=== PATIENT | female | born 2000 | race Hispanic/Latino ===

== ENCOUNTER 2019-07-12 21:26 | Emergency (ER) | payer SELFPAY ==
[2019-07-12] MEDS ORDERED: ONDANSETRON 4 MG/2 ML VIAL ONE (21:58)
[2019-07-12] MEDS ORDERED: FAMOTIDINE 20 MG/2 ML VIAL IV ONE (21:58)
[2019-07-12] MEDS ORDERED: NA CHLORIDE 0.9% 1,000 ML ONE (21:58)
[2019-07-12 22:16] LABS: Absolute Lymphocytes (CBC) 0.4 K/uL (0.7-4.9); Basophils % 0.6 % (0-1.3); Hematocrit 39.4 % (36.0-45.0); Lymphocytes % 3.8 % (15.3-44.8); MPV 8.3 fL (7.6-11.3); RBC Red Blood Cell Count 4.72 M/uL (3.86-4.86)
[2019-07-12 23:12] LABS: ALT/SGPT 20 U/L (12-78); AST/SGOT 14 U/L (15-37); Albumin 3.9 g/dL (3.4-5.0); Alkaline Phosphatase 116 U/L (45-117); BUN Blood Urea Nitrogen 8 mg/dL (7-18); Bicarbonate 25 mmol/L (21-32); Bilirubin Direct < 0.1 mg/dL (0-0.2); Bilirubin Total 0.3 mg/dL (0.2-1.0); Glucose Level 108 mg/dL (74-106); Lipase 82 U/L (73-393); Potassium 3.7 mmol/L (3.5-5.1); Protein, Total 8.1 g/dL (6.4-8.2); Sodium Level 134 mmol/L (136-145)
[2019-07-12 23:26] LABS: Blood Morphology Comment NOT SEEN (NOT SEEN); Platelet Estimate ADEQ
--- NOTE | 2019-07-12 23:46 | EDPHYS ---
Physician Documentation [facility] Name: Daria Mario Age: 19 yrs Sex: Female : 2000 Arrival Date: 07/12/2019 Time: 21:26 Bed 16 Private MD: ED Physician Keith Montanez HPI: 07/11 21:55 This 19 yrs old Female presents to ER via Ambulatory with complaints of cp Nausea/Vomiting/Diarrhea. 21:55 Onset: The symptoms/episode began/occurred today. cp 07/12 21:47 The patient presents to the emergency department with nausea, that is moderate, cp vomiting, that is intermittent, 2 times today, diarrhea, that is intermittent, 2 times today, abdominal pain, of the left lower quadrant, described as achy, and does not radiate. Associated signs and symptoms: Pertinent positives: headache, Pertinent negatives: constipation, fever, GI bleeding, vaginal discharge, urinary symptoms. 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 - Social history:: Smoking status: Patient reports the use of cigarette tobacco products, denies chronic smoking, but will smoke occasionally. ROS: 22:00 Constitutional: Negative for body aches, chills, fever. cp 22:00 Eyes: Negative for injury, pain, redness, and discharge. cp 22:00 ENT: Negative for drainage from ear(s), ear pain, sore throat, difficulty swallowing, difficulty handling secretions. 22:00 Cardiovascular: Negative for chest pain, palpitations. 22:00 Respiratory: Negative for cough, shortness of breath, wheezing. 22:00 Abdomen/GI: Positive for abdominal pain, nausea, vomiting, and diarrhea, Negative for constipation, hematemesis. 22:00 Back: Negative for pain at rest, pain with movement, radiated pain. 22:00 : Negative for urinary symptoms, vaginal bleeding, vaginal discharge. 22:00 Skin: Negative for rash. 22:00 Neuro: Positive for headache, Negative for altered mental status, dizziness, weakness. 22:00 All other systems are negative. Exam: 22:10 Constitutional: The patient appears in no acute distress, alert, awake, non-toxic, well cp developed, well nourished. 22:10 Head/Face: Normocephalic, atraumatic. Eyes: Pupils equal round and reactive to light, cp extra-ocular motions intact. Lids and lashes normal. Conjunctiva and sclera are non-icteric and not injected. Cornea within normal limits. Periorbital areas with no swelling, redness, or edema. ENT: Nares patent. No nasal discharge, no septal abnormalities noted. Tympanic membranes are normal and external auditory canals are clear. Oropharynx with no redness, swelling, or masses, exudates, or evidence of obstruction, uvula midline. Mucous membranes moist. Chest/axilla: Normal chest wall appearance and motion. Nontender with no deformity. No lesions are appreciated. 22:10 Neck: ROM/movement: is normal, is supple, no meningismus, no nuchal rigidity. 22:10 Cardiovascular: Rate: tachycardic, Rhythm: regular. 22:10 Respiratory: the patient does not display signs of respiratory distress, Respirations: normal, no use of accessory muscles, no retractions, labored breathing, is not present, Breath sounds: are clear throughout, no decreased breath sounds, no stridor, no wheezing. 22:10 Abdomen/GI: Inspection: abdomen appears normal, Bowel sounds: active, all quadrants, Palpation: soft, in all quadrants, mild abdominal tenderness, in the left lower quadrant, rebound tenderness, is not appreciated, voluntary guarding, is not appreciated, involuntary guarding, is not appreciated. 22:10 Back: pain, is absent, ROM is normal. 22:10 Skin: no rash present. 22:10 Neuro: Orientation: to person, place \T\ time. Mentation: is normal, Motor: moves all fours, strength is normal. Vital Signs: 21:40 BP 114 / 69; Pulse 109; Resp 16 S; Temp 98.7(TE); Pulse Ox 100% on R/A; Weight 95.25 kg jd3 (R); Height 5 ft. 2 in. (157.48 cm) (R); Pain 8/10; 22:40 BP 103 / 58; Pulse 101; Resp 18; Pulse Ox 100% on R/A; mg2 23:39 BP 103 / 59; Pulse 88; Resp 18; Pulse Ox 100% ; mg2 21:40 Body Mass Index 38.41 (95.25 kg, 157.48 cm) jd3 MDM: 21:45 Patient medically screened. cp 22:00 Differential diagnosis: gastritis, cholecystitis, appendicitis, viral gastroenteritis, cp gastroenteritis. 23:45 Data reviewed: vital signs, nurses notes, lab test result(s), and as a result, I will cp discharge patient. 23:45 Counseling: I had a detailed discussion with the patient and/or guardian regarding: the cp historical points, exam findings, and any diagnostic results supporting the discharge/admit diagnosis, lab results, to return to the emergency department if symptoms worsen or persist or if there are any questions or concerns that arise at home. Response to treatment: the patient's symptoms have markedly improved after treatment, VSS. Nausea and pain improved. No vomiting observed while in ED, and as a result, I will discharge patient. 07/11 21:51 Order name: Basic Metabolic Panel; Complete Time: 23:14 cp 07/11 23:14 Interpretation: Normal except: NA 134; GLUC 108. cp 07/11 21:51 Order name: CBC with Diff; Complete Time: 23:40 cp 0310 22:54 Interpretation: Normal except: WBC 11.5; MCV 83.5; RDW 15.7; JOCELYN% 88.4; LYM% 3.8; NEUT cp A 10.2; LYMA 0.4. 0310 21:51 Order name: Creatinine for Radiology; Complete Time: 22:53 cp 07/11 21:51 Order name: Hepatic Function; Complete Time: 23:14 cp 0310 23:14 Interpretation: Normal except: AST 14; GLOB 4.2; A/G 0.9. cp 03 21:51 Order name: Lipase; Complete Time: 23:14 cp 07/11 21:51 Order name: Influenza Screen (a \T\ B); Complete Time: 22:53 cp 03 22:54 Interpretation: Abnormal: FLUA FLU A ----- \T\nbsp; \T\nbsp; \T\nbsp; \T\nbsp; \T\nbsp; \T\nbs p; cp \T\nbsp; \T\nbsp; \T\nbsp; POSITIVE for FLU A protein antigen. 07/11 21:51 Order name: IV Saline Lock; Complete Time: 22:23 cp 07/11 21:51 Order name: Labs collected and sent; Complete Time: 22:23 cp 07/11 21:51 Order name: Urine Dipstick-Ancillary (obtain specimen); Complete Time: 22:23 cp 07/11 22:32 Order name: Manual Differential; Complete Time: 23:40 EDMS 07/11 23:40 Interpretation: Normal except: SEGS 91; LYM 3. cp 07/11 21:51 Order name: Urine Test (obtain specimen); Complete Time: 22:23 cp 07/11 23:15 Order name: PO challenge; Complete Time: 23:39 cp Administered Medications: 22:05 Drug: Pepcid 20 mg Route: IVP; Site: left antecubital; mg2 23:13 Follow up: Response: No adverse reaction mg2 22:05 Drug: NS 0.9% 1000 ml Route: IV; Rate: 1 bolus; Site: left antecubital; mg2 07/12 00:07 Follow up: Response: No adverse reaction; IV Status: Completed infusion; IV Intake: mg2 1000ml 07/11 22:06 Drug: Zofran (Ondansetron) 4 mg Route: IVP; Site: left antecubital; mg2 23:13 Follow up: Response: No adverse reaction mg2 07/12 00:07 Drug: Tamiflu 75 mg Route: PO; mg2 00:07 Follow up: Response: No adverse reaction; Medication administered at discharge. mg2 Disposition: 07/12/19 23:45 Discharged to Home. Impression: Nausea and vomiting, Diarrhea, unspecified, Influenza due to identified novel influenza A virus. - Condition is Stable. - Discharge Instructions: Food Choices to Help Relieve Diarrhea, Adult, Diarrhea, Adult, Influenza, Adult, Nausea and Vomiting, Adult. - Prescriptions for Zofran 4 mg Oral Tablet - take 1 tablet by ORAL route every 12 hours As needed; 20 tablet. Tamiflu 75 mg Oral Capsule - take 1 tablet by ORAL route every 12 hours for 5 days; 9 tablet. - Medication Reconciliation Form, Thank You Letter, Antibiotic Education, Prescription Opioid Use form. - Work release form (07/13/19 01:38). ar5 - Follow up: Private Physician; When: 1 - 2 days; Reason: Worsening of condition. - Problem is new. - Symptoms have improved. Addendum: 07/15/2019 08:06 Co-signature as Attending Physician, Keith Montanez MD I agree with the assessment and t w4 plan of care. Signatures: Dispatcher [employer] EDMS Iam Corbett PA PA cp Davies, Jonathon, SANKET RN jd3 Keith Montanez MD MD tw4 Ez Palafox RN RN mg2 Gabrielle Butt ar5 Corrections: (The following items were deleted from the chart) 07/11 22:54 22:54 Normal except: WBC 11.5; MCV 83.5; RDW 15.7; JOCELYN% 88.4; LYM% 3.8; NEUT A 10.2. cp cp 07/12 00:10 07/11 23:45 07/12/2019 23:45 Discharged to Home. Impression: Nausea and vomiting; mg2 Diarrhea, unspecified; Influenza due to identified novel influenza A virus. Condition is Stable. Forms are Medication Reconciliation Form, Thank You Letter, Antibiotic Education, Prescription Opioid Use. Follow up: Private Physician; When: 1 - 2 days; Reason: Worsening of condition. Problem is new. Symptoms have improved. cp 07/12 21:49 07/11 21:55 The patient presents to the emergency department with nausea, that is cp moderate, vomiting, that is intermittent, cp
--- NOTE | 2019-07-12 23:46 | ER ---
Nurse's Notes [facility] Name: Daria Mario Age: 19 yrs Sex: Female : 2000 Arrival Date: 07/12/2019 Time: 21:26 Bed 16 Private MD: Diagnosis: Nausea and vomiting;Diarrhea, unspecified;Influenza due to identified novel influenza A virus Presentation: 07/11 21:38 Chief complaint: Patient states: "I thought i was having some allergies so i took some jd3 allergy meds. throughout the afternoon I have been getting more and more nauseous and throwing up and a headache.". Coronavirus screen: The patient has NOT traveled to a country currently being monitored by the [facility] within the last 14 days. The patient has NOT had contact with any known and/or suspected case of coronavirus. Proceed with normal triage procedures. Ebola Screen: Patient negative for fever greater than or equal to 101.5 degrees Fahrenheit, and additional compatible Ebola Virus Disease symptoms. Initial Sepsis Screen: Does the patient meet any 2 criteria? No. Patient's initial sepsis screen is negative. Does the patient have a suspected source of infection? No. Patient's initial sepsis screen is negative. Risk Assessment: Do you want to hurt yourself or someone else? Patient reports no desire to harm self or others. 21:38 Method Of Arrival: Ambulatory jd3 21:38 Acuity: ISABELL 3 jd3 22:39 Onset of symptoms was July 12, 2019. 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 - Social history:: Smoking status: Patient reports the use of cigarette tobacco products, denies chronic smoking, but will smoke occasionally. Screenin:38 Abuse screen: Denies threats or abuse. Denies injuries from another. Nutritional mg2 screening: No deficits noted. Tuberculosis screening: No symptoms or risk factors identified. Fall Risk IV access (20 points). Assessment: 22:36 General: Appears in no apparent distress. comfortable, Behavior is calm, cooperative. mg2 Pain: Complains of pain in abdomen Pain currently is 2 out of 10 on a pain scale. Neuro: Level of Consciousness is awake, alert, obeys commands, Oriented to person, place, time, situation. Cardiovascular: Capillary refill < 3 seconds Patient's skin is warm and dry. Respiratory: Airway is patent Respiratory effort is even, unlabored, Respiratory pattern is regular, symmetrical. GI: Abdomen is non-distended, Reports nausea, vomiting. : No signs and/or symptoms were reported regarding the genitourinary system. EENT: No signs and/or symptoms were reported regarding the EENT system. Derm: Skin is intact, is healthy with good turgor. Musculoskeletal: Circulation, motion, and sensation intact. Capillary refill < 3 seconds. 23:40 Reassessment: Patient appears in no apparent distress at this time. Patient and/or mg2 family updated on plan of care and expected duration. Pain level reassessed. Patient is alert, oriented x 3, equal unlabored respirations, skin warm/dry/pink. Vital Signs: 21:40 BP 114 / 69; Pulse 109; Resp 16 S; Temp 98.7(TE); Pulse Ox 100% on R/A; Weight 95.25 kg jd3 (R); Height 5 ft. 2 in. (157.48 cm) (R); Pain 8/10; 22:40 BP 103 / 58; Pulse 101; Resp 18; Pulse Ox 100% on R/A; mg2 23:39 BP 103 / 59; Pulse 88; Resp 18; Pulse Ox 100% ; mg2 21:40 Body Mass Index 38.41 (95.25 kg, 157.48 cm) jd3 ED Course: 21:26 Patient arrived in ED. ds1 21:29 Iam Corbett PA is PHCP. cp 21:29 Keith Montanez MD is Attending Physician. cp 21:40 Triage completed. jd3 21:42 Arm band placed on. jd3 21:52 Ez Palafox, SANKET is Primary Nurse. mg2 22:05 Inserted saline lock: 20 gauge in left antecubital area, using aseptic technique. Blood mg2 collected. 22:23 No provider procedures requiring assistance completed. mg2 22:39 Patient has correct armband on for positive identification. Placed in gown. Bed in low mg2 position. Side rails up X2. Pulse ox on. NIBP on. Door closed. Warm blanket given. 07/12 00:09 IV discontinued, intact, bleeding controlled, No redness/swelling at site. Pressure mg2 dressing applied. Administered Medications: 07/11 22:05 Drug: Pepcid 20 mg Route: IVP; Site: left antecubital; mg2 23:13 Follow up: Response: No adverse reaction mg2 22:05 Drug: NS 0.9% 1000 ml Route: IV; Rate: 1 bolus; Site: left antecubital; mg2 07/12 00:07 Follow up: Response: No adverse reaction; IV Status: Completed infusion; IV Intake: mg2 1000ml 07/11 22:06 Drug: Zofran (Ondansetron) 4 mg Route: IVP; Site: left antecubital; mg2 23:13 Follow up: Response: No adverse reaction mg2 07/12 00:07 Drug: Tamiflu 75 mg Route: PO; mg2 00:07 Follow up: Response: No adverse reaction; Medication administered at discharge. mg2 Intake: 00:07 IV: 1000ml; Total: 1000ml. mg2 Outcome: 07/11 23:45 Discharge ordered by . macey 07/12 00:10 Discharged to home ambulatory, with family. mg2 Condition: good Discharge instructions given to patient, family, Instructed on discharge instructions, follow up and referral plans. medication usage, Demonstrated understanding of instructions, follow-up care, medications, Prescriptions given X 2. 00:10 Patient left the ED. mg2 Signatures: Michelle Gale ds1 Iam Corbett PA PA cp Davies, Jonathon, RN RN jEz Junior RN RN mg2
[2019-07-13] MEDS ORDERED: OSELTAMIVIR 75 MG CAP ONE (00:04)
[2019-07-13 00:49] VITALS: TEMP 98.7; O2SAT 100
[2019-07-13 00:53] VITALS: BP 103/59
== END 2019-07-13 00:10 | disposition home or self-care (01) ==
LOC: ER 21:26
DX: J09.X9 Influenza due to identified novel influenza A virus with other manifestations (principal); R19.7 Diarrhea, unspecified
CPT/HCPCS: 36415; 80048; 80076; 83690; 85025; 87804; 96361; 96374; 96375; 99284; J2405; J7030

== ENCOUNTER 2019-12-25 03:01 | Emergency (ER) | payer SELFPAY ==
[2019-12-25 03:29] LABS: Urine Blood 3+ (NEG); Urine Glucose NEGATIVE (NEG); Urine Protein NEGATIVE (NEG); Urine Specific Gravity >1.030 (1.005-1.030)
[2019-12-25 03:38] LABS: Absolute Lymphocytes (CBC) 3.1 K/uL (0.7-4.9); Basophils % 0.8 % (0-1.3); Hematocrit 36.6 % (36.0-45.0); Lymphocytes % 25.8 % (15.3-44.8); MPV 8.3 fL (7.6-11.3); RBC Red Blood Cell Count 4.37 M/uL (3.86-4.86)
[2019-12-25 03:44] LABS: Urine Amorphous Sediment 1+ /HPF (NONE SEEN); Urine Bacteria >50 /HPF (<20); Urine Culture Reflex Order REFLEXED; Urine Mucus 2+ /HPF (NONE SEEN)
[2019-12-25] MEDS ORDERED: NITROFURAN MACRO 100 MG CAP PO ONE (04:17)
[2019-12-25 04:26] LABS: BUN Blood Urea Nitrogen 11 mg/dL (7-18); Bicarbonate 26 mmol/L (21-32); Glucose Level 132 mg/dL (74-106); HCG, Quantitative 7159 mIU/mL (1-3); Potassium 3.6 mmol/L (3.5-5.1); Sodium Level 139 mmol/L (136-145)
--- NOTE | 2019-12-25 04:54 | ER ---
Nurse's Notes [facility] Name: Daria Mario Age: 19 yrs Sex: Female : 2000 Arrival Date: 12/25/2019 Time: 03:04 Bed 18 Private MD: Diagnosis: Threatened ;Urinary tract infection, site not specified Presentation: 12/24 03:15 Chief complaint: Patient states: Pt reports she started spotting last night reports she ea is 7 weeks . Coronavirus screen: The client reports previous COVID testing was negative. negative results obtained 12/22/19. Ebola Screen: No symptoms or risks identified at this time. Initial Sepsis Screen: Does the patient meet any 2 criteria? No. Patient's initial sepsis screen is negative. Does the patient have a suspected source of infection? No. Patient's initial sepsis screen is negative. Risk Assessment: Do you want to hurt yourself or someone else? Patient reports no desire to harm self or others. Onset of symptoms was December 25, 2019. 03:15 Method Of Arrival: Ambulatory ea 03:15 Acuity: ISABELL 3 ea Triage Assessment: 03:19 General: Appears in no apparent distress. Behavior is calm, cooperative, appropriate ea for age. Pain: Denies pain. Neuro: Level of Consciousness is awake, alert, obeys commands, Oriented to person, place, time, situation. Cardiovascular: Patient's skin is warm and dry. Respiratory: Airway is patent Respiratory effort is even, unlabored, Respiratory pattern is regular, symmetrical. : Reports vaginal bleeding that is with clots, spotty. 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 - Family history:: not pertinent. - Social history:: Smoking status: Patient denies any tobacco usage or history of. - Hospitalizations: : No recent hospitalization is reported. Screenin:18 Abuse screen: Denies threats or abuse. Nutritional screening: No deficits noted. ea Tuberculosis screening: No symptoms or risk factors identified. Fall Risk None identified. Assessment: 03:22 Reassessment: see triage assessment. ea 04:49 Reassessment: Patient and/or family updated on plan of care and expected duration. Pain ea level reassessed. Patient is alert, oriented x 3, equal unlabored respirations, skin warm/dry/pink. 05:11 Reassessment: Patient and/or family updated on plan of care and expected duration. Pain ea level reassessed. Patient is alert, oriented x 3, equal unlabored respirations, skin warm/dry/pink. Discharge instruction given to patient verbalized the understanding of instruction. Pt left ED ambulatory tolerating well. Vital Signs: 03:15 BP 130 / 61; Pulse 88; Resp 16; Temp 98.5; Pulse Ox 100% ; Weight 96.62 kg; Height 5 ea ft. 2 in. (157.48 cm); Pain 0/10; 04:54 BP 99 / 56; Pulse 66; Resp 18; Pulse Ox 100% on R/A; ea 03:15 Body Mass Index 38.96 (96.62 kg, 157.48 cm) ea ED Course: 03:04 Patient arrived in ED. bp1 03:05 Lukas Guy MD is Attending Physician. rn 03:06 Ez Palafox RN is Primary Nurse. mg2 03:18 Triage completed. ea 03:18 Patient has correct armband on for positive identification. Bed in low position. Call ea light in reach. Side rails up X 1. 03:19 Arm band placed on right wrist. Patient placed in an exam room, on a stretcher, on ea pulse oximetry. 03:22 Inserted saline lock: 20 gauge in right antecubital area, using aseptic technique. ea Blood collected. 04:44 Ultrasound completed. Patient tolerated well. Notified ED Physician maci. sg3 04:51 US Transvaginal Ob In Process Unspecified. EDMS 05:12 No provider procedures requiring assistance completed. IV discontinued, intact, ea bleeding controlled, No redness/swelling at site. Pressure dressing applied. Administered Medications: 04:09 Drug: Macrobid 100 mg Route: PO; mg2 05:10 Follow up: Response: No adverse reaction ea Outcome: 04:54 Discharge ordered by . rn 05:12 Discharged to home ambulatory. ea 05:12 Condition: stable 05:12 Discharge instructions given to patient, Instructed on discharge instructions, follow up and referral plans. Demonstrated understanding of instructions, follow-up care. 05:13 Patient left the ED. abiodun Signatures: Dispatcher [employer] EDLukas Roberts MD MD rn Antunez, Elena, RN RN ea Godinez, Sarah sg3 Ez Palafox RN SANKET Merritt, Julia [facility]
--- NOTE | 2019-12-25 04:54 | EDPHYS ---
Physician Documentation [facility] Name: Daria Mario Age: 19 yrs Sex: Female : 2000 Arrival Date: 12/25/2019 Time: 03:04 Bed 18 Private MD: ED Physician Lukas Guy HPI: 12/24 03:13 This 19 yrs old Female presents to ER via Unassigned with complaints of rn Vaginal Bleeding. 03:13 The patient presents with vaginal bleeding that is spotting. Onset: The rn symptoms/episode began/occurred last night. Modifying factors: The symptoms are alleviated by nothing, the symptoms are aggravated by nothing. Severity of symptoms: At their worst the symptoms were very mild, in the emergency department the symptoms are unchanged. The patient has not experienced similar symptoms in the past. Reports approx 7 weeks , first , no u/s yet, presents with spotting since last night, small amount, no trauma/urinary symptoms/abd pain/vaginal discharge. . 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 - Family history:: not pertinent. - Social history:: Smoking status: Patient denies any tobacco usage or history of. - Hospitalizations: : No recent hospitalization is reported. ROS: 03:13 Constitutional: Negative for chills, and weight loss, Eyes: Negative for injury, pain, rn redness, and discharge, Cardiovascular: Negative for chest pain, palpitations, and edema, Respiratory: Negative for shortness of breath, cough, wheezing, and pleuritic chest pain, Abdomen/GI: Negative for abdominal pain, nausea, vomiting, and constipation, : + vaginal bleeding MS/Extremity: Negative for injury and deformity, Skin: Negative for injury, rash, and discoloration, Neuro: Negative for headache, weakness, numbness, tingling, and seizure. Exam: 03:13 Constitutional: This is a well developed, well nourished patient who is awake, alert, rn tearful, ambulatory to room without difficulty or assistance. Head/Face: Normocephalic, atraumatic. Cardiovascular: Regular rate and rhythm. No pulse deficits. Respiratory: No increased work of breathing, no retractions or nasal flaring. Abdomen/GI: soft, non-tender Skin: Warm, dry MS/ Extremity: Pulses equal, no cyanosis. Neuro: Awake and alert, GCS 15 Vital Signs: 03:15 BP 130 / 61; Pulse 88; Resp 16; Temp 98.5; Pulse Ox 100% ; Weight 96.62 kg; Height 5 ea ft. 2 in. (157.48 cm); Pain 0/10; 04:54 BP 99 / 56; Pulse 66; Resp 18; Pulse Ox 100% on R/A; ea 03:15 Body Mass Index 38.96 (96.62 kg, 157.48 cm) ea MDM: 03:05 Patient medically screened. rn 04:09 ED course: U/S tech called out upon patient's arrival, waiting on arrival to perform rn u/s. . 04:52 Differential diagnosis: ectopic , urinary tract infection. Data reviewed: rn vital signs, nurses notes, lab test result(s), radiologic studies, ultrasound, and as a result, I will discharge patient. Counseling: I had a detailed discussion with the patient and/or guardian regarding: the historical points, exam findings, and any diagnostic results supporting the discharge/admit diagnosis, lab results, radiology results, the need for outpatient follow up, to return to the emergency department if symptoms worsen or persist or if there are any questions or concerns that arise at home. Special discussion: I discussed with the patient/guardian in detail that at this point there is no indication for admission to the hospital. It is understood, however, that if the symptoms persist or worsen the patient needs to return immediately for re-evaluation. Based on the history and exam findings, there is no indication for further emergent testing or inpatient evaluation. I discussed with the patient/guardian the need to see the OB Gyne specialist for further evaluation of the symptoms. ED course: Pt with IUP, no detected heart beat, could be too early or might be sign of , RH+, + bacteriuria, will dc home with abx, already has OB appt Thursday, results, including beta-hcg printed and handed to patient. Return precautions given and understood.. 12/24 03:13 Order name: Quantitative Hcg; Complete Time: 04:51 rn 12/24 03:13 Order name: Abo/rh Typing; Complete Time: 03:56 rn 12/24 03:13 Order name: Basic Metabolic Panel; Complete Time: 04:51 rn 12/24 03:13 Order name: CBC with Diff; Complete Time: 03:56 12/24 03:13 Order name: Urine Microscopic Only; Complete Time: 03:56 12/24 03:27 Order name: Urine Dipstick--Ancillary (enter results); Complete Time: 03:56 [facility] 12/24 03:13 Order name: Urine Test (obtain specimen); Complete Time: 03:25 rn 12/24 03:13 Order name: IV Saline Lock; Complete Time: 03:22 rn 12/24 03:13 Order name: Labs collected and sent; Complete Time: 03:22 12/24 03:13 Order name: Urine Dipstick-Ancillary (obtain specimen); Complete Time: 03:25 12/24 03:13 Order name: US Transvaginal Ob 12/24 03:27 Order name: Urine --Ancillary (enter results); Complete Time: 03:56 [facility] 12/24 03:45 Order name: Urine Culture EDMS Administered Medications: 04:09 Drug: Macrobid 100 mg Route: PO; mg2 05:10 Follow up: Response: No adverse reaction ea Disposition: 12/25/19 04:54 Discharged to Home. Impression: Threatened , Urinary tract infection, site not specified. - Condition is Stable. - Discharge Instructions: Threatened Miscarriage, Urinary Tract Infection, Adult, Vaginal Bleeding During , First Trimester, Pelvic Rest. - Prescriptions for Macrobid 100 mg Oral Capsule - take 1 capsule by ORAL route every 12 hours for 7 days; 14 capsule. - Medication Reconciliation Form, Thank You Letter, Antibiotic Education, Prescription Opioid Use form. - Follow up: Private Physician; When: 48 Hours; Reason: Further diagnostic work-up, Recheck today's complaints, Repeat Beta-HCG (48 Hours), Re-evaluation by your physician. - Problem is new. - Symptoms are unchanged. Signatures: Dispatcher [employer] EDMS Lukas Guy MD MD rn Antunez, Elena, RN RN ea Gardose, Michele, RN RN mg2 Corrections: (The following items were deleted from the chart) 05:13 04:54 12/25/2019 04:54 Discharged to Home. Impression: Threatened ; Urinary ea tract infection, site not specified. Condition is Stable. Forms are Medication Reconciliation Form, Thank You Letter, Antibiotic Education, Prescription Opioid Use. Follow up: Private Physician; When: 48 Hours; Reason: Further diagnostic work-up, Recheck today's complaints, Repeat Beta-HCG (48 Hours), Re-evaluation by your physician. Problem is new. Symptoms are unchanged. rn
--- NOTE | 2019-12-25 09:06 | RAD REPORT ---
EXAM DESCRIPTION: US - Transvaginal OB - 12/25/2019 4:50 am CLINICAL HISTORY: with pelvic pain and vaginal bleeding COMPARISON: None. FINDINGS: The uterus measures 11 x 7 x 7 centimeters. A normal appearing gestational sac is present within the endometrium. Within this is a yolk sac and pole with a crown-rump length 6 millimet ers. . Cardiac activity was not detected Right ovary is normal in size and echotexture. A 7 centimeter left ovarian cyst is present. Flow is present to the left ovary Right and left adnexal otherwise unremarkable Small amount of free fluid IMPRESSION: Single intrauterine with an estimated gestational age 6 weeks 3 days ARACELIS 08/02 Cardiac activity was not detected. This may indicate a demise. Another consideration is that th is is a viable and cardiac activity not detected due to the early gestation. As a precautio n it is recommended that the patient have a followup endovaginal sonogram 1 week for re-evaluation. S erial beta HCG level also recommended The 7 centimeter left ovarian cyst can be reassessed at this time
== END 2019-12-25 05:13 | disposition home or self-care (01) ==
LOC: ER 03:01
DX: O20.0 Threatened abortion (principal); O23.41 Unspecified infection of urinary tract in pregnancy, first trimester; Z3A.01 Less than 8 weeks gestation of pregnancy
CPT/HCPCS: 36415; 76817; 80048; 81003; 81015; 81025; 84702; 85025; 86900; 86901; 87086; 87088; 99284

== ENCOUNTER 2019-12-27 20:04 | Emergency (ER) | payer SELFPAY ==
--- NOTE | 2019-12-27 22:39 | ER ---
Nurse's Notes [facility] Name: Daria Mario Age: 19 yrs Sex: Female : 2000 Arrival Date: 12/27/2019 Time: 20:07 Bed 26 Private MD: Diagnosis: Threatened Presentation: 12/26 20:11 Chief complaint: Patient states: Diagnosed with UTI here Thursday night. Had vaginal ll1 spotting with clots since Thursday night. 6 weeks . Taking antibiotics as prescribed. Spotting has gotten better. Had ultrasound today, was told everything was fine. Came in tonight because her abdominal pain has gotten stronger. G1, P0. Coronavirus screen: Client denies travel out of the [place] in the last 14 days. At this time, the client does not indicate any symptoms associated with coronavirus-19. Ebola Screen: Patient denies travel to an Ebola-affected area in the 21 days before illness onset. Initial Sepsis Screen: Does the patient meet any 2 criteria? No. Patient's initial sepsis screen is negative. Risk Assessment: Do you want to hurt yourself or someone else? Patient reports no desire to harm self or others. Onset of symptoms was December 23, 2019. 20:11 Method Of Arrival: Ambulatory ll1 20:11 Acuity: ISABELL 3 ll1 Triage Assessment: 20:20 General: Appears in no apparent distress. comfortable, Behavior is calm, cooperative. ls4 20:20 Pain: Complains of pain in groin Pain currently is 7 out of 10 on a pain scale. GI: No ls4 deficits noted. No signs and/or symptoms were reported involving the gastrointestinal system. 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 - Social history:: Smoking status: Patient denies any tobacco usage or history of. Patient uses alcohol, only on a social basis. Patient/guardian denies using street drugs. Screenin:21 Abuse screen: Denies threats or abuse. Denies injuries from another. Nutritional ls4 screening: No deficits noted. Tuberculosis screening: No symptoms or risk factors identified. Fall Risk None identified. Assessment: 20:20 GI: Abdomen is non-distended, Bowel sounds present X 4 quads. Abd is soft and non ls4 tender X 4 quads. 20:20 Neuro: No deficits noted. Cardiovascular: No deficits noted. Respiratory: No deficits ls4 noted. : Reports cramping, lower quadrant(s). 21:20 Reassessment: Patient appears in no apparent distress at this time. ls4 Vital Signs: 20:11 BP 114 / 78; Pulse 85; Resp 18; Temp 99.4; Pulse Ox 100% ; Weight 98.43 kg; Height 5 ll1 ft. 2 in. (157.48 cm); Pain 7/10; 20:11 Body Mass Index 39.69 (98.43 kg, 157.48 cm) ll1 ED Course: 20:07 Patient arrived in ED. es 20:14 Triage completed. ll1 20:15 Arm band placed on Patient placed in an exam room, on a stretcher. ll1 20:18 Linda Torrez FNP-C is [facility]. kb 20:18 Jefferson Walters MD is Attending Physician. kb 21:17 Shasta Pa, RN is Primary Nurse. ls4 21:22 No provider procedures requiring assistance completed. Patient did not have IV access ls4 during this emergency room visit. 22:57 Urine Culture Sent. ls4 Administered Medications: No medications were administered Outcome: 22:39 Discharge ordered by . kb 22:58 Discharged to home ambulatory. ls4 22:58 Condition: good 22:58 Discharge instructions given to patient, Instructed on discharge instructions, follow ls4 up and referral plans. Demonstrated understanding of instructions, follow-up care, medications. 22:59 Patient left the ED. ls4 Signatures: Linda Torrez FNP-C FNP-Uzma Calvert Lisa, RN RN ls4 Aidee Perez RN RN ll1 Corrections: (The following items were deleted from the chart) 22:59 22:58 Discharge instructions given to Instructed on Demonstrated understanding of ls4 ls4
--- NOTE | 2019-12-27 22:39 | EDPHYS ---
Physician Documentation [facility] Name: Daria Mario Age: 19 yrs Sex: Female : 2000 Arrival Date: 12/27/2019 Time: 20:07 Bed 26 Private MD: ED Physician Jefferson Walters HPI: 12/26 22:12 This 19 yrs old Female presents to ER via Ambulatory with complaints of kb Abdominal Cramping, 6wks preg. 22:12 The patient presents to the emergency department with abdominal pain, of the right kb lower quadrant and left lower quadrant, described as crampy, vaginal bleeding, described as spotting. The estimated gestational age is 6 weeks. course: care: at a clinic, Leakage of Fluid: none appreciated, Ultrasound: the patient had an ultrasound, which was normal, Risk/complications: no obvious risks or complications are appreciated. Previous pregnancies: the patient has never been . Associated signs and symptoms: Pertinent positives: abdominal pain, vaginal bleeding, Pertinent negatives: chest pain, diarrhea, dysuria, fever, frequency, nausea, ruptured membranes, seizure, shortness of breath, vaginal discharge, vomiting. The patient has not experienced similar symptoms in the past. The patient has not recently seen a physician. Pt reports lower abd cramping and vaginal spotting that started a week ago. States she was seen here and everything was ok then, but she is still concerned because the clinic hasn't given her any results. REports spotting is getting better, but cramping is not. Has follow up appt with OB on Thursday. 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 - Social history:: Smoking status: Patient denies any tobacco usage or history of. Patient uses alcohol, only on a social basis. Patient/guardian denies using street drugs. ROS: 22:05 Constitutional: Negative for fever, chills, and weight loss, Cardiovascular: Negative kb for chest pain, palpitations, and edema, Respiratory: Negative for shortness of breath, cough, wheezing, and pleuritic chest pain, Back: Negative for injury and pain, MS/Extremity: Negative for injury and deformity, Skin: Negative for injury, rash, and discoloration, Neuro: Negative for headache, weakness, numbness, tingling, and seizure. 22:05 Abdomen/GI: Positive for abdominal cramps. 22:05 : Positive for vaginal bleeding. Exam: 22:11 Constitutional: This is a well developed, well nourished patient who is awake, alert, kb and in no acute distress. Head/Face: Normocephalic, atraumatic. Chest/axilla: Normal chest wall appearance and motion. Nontender with no deformity. No lesions are appreciated. Cardiovascular: Regular rate and rhythm with a normal S1 and S2. No gallops, murmurs, or rubs. Normal PMI, no JVD. No pulse deficits. Respiratory: Lungs have equal breath sounds bilaterally, clear to auscultation and percussion. No rales, rhonchi or wheezes noted. No increased work of breathing, no retractions or nasal flaring. Abdomen/GI: Soft, non-tender, with normal bowel sounds. No distension or tympany. No guarding or rebound. No evidence of tenderness throughout. Skin: Warm, dry with normal turgor. Normal color with no rashes, no lesions, and no evidence of cellulitis. MS/ Extremity: Pulses equal, no cyanosis. Neurovascular intact. Full, normal range of motion. Neuro: Awake and alert, GCS 15, oriented to person, place, time, and situation. Cranial nerves II-XII grossly intact. Motor strength 5/5 in all extremities. Sensory grossly intact. Cerebellar exam normal. Normal gait. Vital Signs: 20:11 BP 114 / 78; Pulse 85; Resp 18; Temp 99.4; Pulse Ox 100% ; Weight 98.43 kg; Height 5 ll1 ft. 2 in. (157.48 cm); Pain 7/10; 20:11 Body Mass Index 39.69 (98.43 kg, 157.48 cm) ll1 MDM: 20:18 Patient medically screened. kb 22:04 Data reviewed: vital signs, nurses notes, old medical records, US from 12/25/19 shows kb IUP measuring 6 weeks. Data interpreted: Pulse oximetry: on room air is 100 %. Interpretation: normal. 22:11 Counseling: I had a detailed discussion with the patient and/or guardian regarding: the kb historical points, exam findings, and any diagnostic results supporting the discharge/admit diagnosis, lab results, the need for outpatient follow up, an OB/Gyne specialist, to return to the emergency department if symptoms worsen or persist or if there are any questions or concerns that arise at home. 22:36 ED course: Pt was educated on decrease in beta HCG and meaning. Educated to keep follow kb up appt with OB on Thursday. Pt educated on probable miscarriage and her symptoms are to be expected with that. Educated to return for any concerns. Verbal understanding received. . 12/26 20:23 Order name: HCG-Quantitative; Complete Time: 22:32 kb 12/26 21:23 Order name: Urine Culture kb 12/26 21:24 Order name: Urine Culture EDMS Administered Medications: No medications were administered Disposition: 12/27 01:27 Co-signature as Attending Physician, Jefferson Walters MD. [email or web address] Disposition: 12/27/19 22:39 Discharged to Home. Impression: Threatened . - Condition is Stable. - Discharge Instructions: Threatened Miscarriage, Dral-[id number], Pelvic Rest, Miscarriage, [id number]. - Medication Reconciliation Form, Thank You Letter, Antibiotic Education, Prescription Opioid Use form. - Follow up: Emergency Department; When: As needed; Reason: Worsening of condition. Follow up: Private Physician; When: 2 - 3 days; Reason: Recheck today's complaints, Continuance of care, Re-evaluation by your physician. Signatures: Dispatcher [employer] EDMS Linda Torrez, MENTAL HEALTH PROFESSIONAL-C MENTAL HEALTH PROFESSIONAL-Shasta Armstrong RN RN ls4 Aidee Perez RN RN ll1 Jefferson Walters MD MD [email or web address] Corrections: (The following items were deleted from the chart) 12/26 22:59 22:39 12/27/2019 22:39 Discharged to Home. Impression: Threatened . Condition ls4 is Stable. Forms are Medication Reconciliation Form, Thank You Letter, Antibiotic Education, Prescription Opioid Use. Follow up: Emergency Department; When: As needed; Reason: Worsening of condition. Follow up: Private Physician; When: 2 - 3 days; Reason: Recheck today's complaints, Continuance of care, Re-evaluation by your physician. kb
[2019-12-31 18:55] VITALS: BP 114/78; TEMP 99.4; O2SAT 100
== END 2019-12-27 22:59 | disposition home or self-care (01) ==
LOC: ER 20:04
DX: O20.0 Threatened abortion (principal); Z3A.01 Less than 8 weeks gestation of pregnancy
CPT/HCPCS: 36415; 84702; 87086; 87088; 99283

== ENCOUNTER 2019-12-28 20:08 | Emergency (ER) | payer SELFPAY ==
[2019-12-28 20:39] LABS: Urine Blood 3+ (NEG); Urine Glucose NEGATIVE (NEG); Urine Protein 1+ (NEG); Urine Specific Gravity >1.030 (1.005-1.030)
[2019-12-28 20:46] LABS: Absolute Lymphocytes (CBC) 3.1 K/uL (0.7-4.9); Basophils % 0.4 % (0-1.3); Hematocrit 36.8 % (36.0-45.0); Lymphocytes % 20.9 % (15.3-44.8); MPV 8.3 fL (7.6-11.3); RBC Red Blood Cell Count 4.46 M/uL (3.86-4.86)
[2019-12-28 20:49] LABS: BUN Blood Urea Nitrogen 10 mg/dL (7-18); Bicarbonate 24 mmol/L (21-32); Glucose Level 113 mg/dL (74-106); Potassium 3.7 mmol/L (3.5-5.1); Sodium Level 139 mmol/L (136-145)
--- NOTE | 2019-12-28 21:13 | RAD REPORT ---
EXAM DESCRIPTION: US - 1St Trimest Single 1St Fetus - 12/28/2019 8:54 pm CLINICAL HISTORY: Abdominal pain with COMPARISON: December 25, 2019 FINDINGS: The patient refused endovaginal ultrasound. Uterus measures 8 x 4 x 3 centimeters. The endometrial stripe is poorly visualized. Evaluation is very limited as the bladder is decompresse d A 6 centimeter left ovarian cyst is present. Flow is present to the left ovary. Right ovary normal in size and echotexture. No significant free fluid IMPRESSION: Evaluation for a gestational sac is nondiagnostic. Endovaginal sonogram is recommended. A 6 centimeter left ovarian cyst.
[2019-12-28] MEDS ORDERED: HYDROCODONE/APAP 5/325 MG TAB ONE ×2 (21:14→22:34)
--- NOTE | 2019-12-28 22:08 | ER ---
Nurse's Notes [facility] Name: Daria Mario Age: 19 yrs Sex: Female : 2000 Arrival Date: 12/28/2019 Time: 20:09 Bed 14 Private MD: Diagnosis: Spontaneous Presentation: 12/27 20:20 Chief complaint: Patient states: VAGINAL BLEEDING STARTED SPOTTING LAST THURSDAY WITH rv ABDOMINAL CRAMPING. SYMPTOMS WORSE THURSDAY. WAS SEEN THURSDAY, AND YESTERDAY, HERE IN THE ER, FOR THE SAME SYMPTOMS. BLEEDING STILL HEAVY, WITH BLOOD CLOTS COMING OUT. Coronavirus screen: Client denies travel out of the [place] in the last 14 days. At this time, the client does not indicate any symptoms associated with coronavirus-19. Ebola Screen: No symptoms or risks identified at this time. Initial Sepsis Screen: Does the patient meet any 2 criteria? No. Patient's initial sepsis screen is negative. Does the patient have a suspected source of infection? No. Patient's initial sepsis screen is negative. Risk Assessment: Do you want to hurt yourself or someone else? Patient reports no desire to harm self or others. Onset of symptoms. 20:20 Method Of Arrival: Ambulatory rv 20:20 Acuity: ISABELL 2 rv Triage Assessment: 20:24 General: Appears uncomfortable, Behavior is cooperative. Pain: Complains of pain in rv groin and suprapubic area Pain currently is 10 out of 10 on a pain scale. EENT: No signs and/or symptoms were reported regarding the EENT system. Neuro: Level of Consciousness is awake, alert, obeys commands, Oriented to person, place, time, situation. Cardiovascular: Patient's skin is warm and dry. Respiratory: Airway is patent Respiratory effort is even, unlabored. : Reports vaginal bleeding that is with clots, heavy flow. 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 - Social history:: Smoking status: Patient denies any tobacco usage or history of. Screenin:25 Abuse screen: Denies threats or abuse. Denies injuries from another. Nutritional rv screening: No deficits noted. Tuberculosis screening: No symptoms or risk factors identified. Fall Risk None identified. Assessment: 20:31 General: Appears uncomfortable, Behavior is calm, cooperative. Pain: Complains of pain mg2 in abdomen. Neuro: Level of Consciousness is awake, alert, obeys commands, Oriented to person, place, time, situation. Cardiovascular: Capillary refill < 3 seconds Patient's skin is warm and dry. Respiratory: Airway is patent Respiratory effort is even, unlabored, Respiratory pattern is regular, symmetrical. GI: No signs and/or symptoms were reported involving the gastrointestinal system. : Reports vaginal bleeding that is with clots. EENT: No signs and/or symptoms were reported regarding the EENT system. Derm: Skin is intact, is healthy with good turgor, Skin is pink, warm \T\ dry. normal. Musculoskeletal: Circulation, motion, and sensation intact. Capillary refill < 3 seconds. Vital Signs: 20:20 BP 114 / 83; Pulse 92; Resp 16; Pulse Ox 100% ; Weight 98.43 kg; Height 5 ft. 2 in. rv (157.48 cm); Pain 10/10; 20:31 Temp 98.8(O); mg2 22:01 BP 100 / 50; Pulse 76; Resp 18; Pulse Ox 100% ; mg2 20:20 Body Mass Index 39.69 (98.43 kg, 157.48 cm) rv Vitals: 20:25 Heart Tones N/A. rv ED Course: 20:09 Patient arrived in ED. am2 20:15 Inserted saline lock: 20 gauge in left antecubital area, using aseptic technique. Blood mg2 collected. 20:20 Ez Palafox RN is Primary Nurse. mg2 20:22 Maria Esther Lizama FNP-C is PHCP. snw 20:22 Jefferson Walters MD is Attending Physician. snw 20:23 Triage completed. rv 20:25 Arm band placed on Patient placed in the treatment room, on a stretcher, Patient rv notified of wait time. 20:25 Patient has correct armband on for positive identification. Pulse ox on. NIBP on. rv 20:54 1St Trimest Single 1St Fetus In Process Unspecified. EDMS 22:15 No provider procedures requiring assistance completed. IV discontinued, intact, mg2 bleeding controlled, No redness/swelling at site. Pressure dressing applied. 22:21 Primary Nurse role handed off by Ez Palafox, SANKET snw 22:22 Ez Palafox, RN is Primary Nurse. mg2 Administered Medications: 21:05 Drug: [place] 5 mg-325 mg 1 tabs Route: PO; mg2 22:00 Follow up: Response: No adverse reaction mg2 22:24 Drug: [place] 5 mg-325 mg 1 tabs Route: PO; mg2 22:24 Follow up: Response: No adverse reaction; Medication administered at discharge. mg2 Point of Care Testing: Urine : 22:01 hCG Reading: Positive; Control Reading: Positive; mg2 Outcome: 22:07 Discharge ordered by . snw 22:15 Discharged to home ambulatory. mg2 22:15 Condition: stable 22:15 Discharge instructions given to patient, Instructed on discharge instructions, follow up and referral plans. medication usage, Demonstrated understanding of instructions, follow-up care, medications, Prescriptions given X 2. 22:16 Patient left the ED. mg2 22:24 Patient left the ED. snw Signatures: Dispatcher [employer] EDMS Maria Esther Lizama, JIG MILL OPERATOR-C JIG MILL OPERATOR-Csnw Nasrin Lopez am2 Ez Palafox, SANKET COLES mg2 Joni Bucio RN RN rv Corrections: (The following items were deleted from the chart) 22:15 22:01 Pulse 76bpm; Resp 18bpm; Pulse Ox 100%; mg2 mg2
--- NOTE | 2019-12-28 22:08 | EDPHYS ---
Physician Documentation [facility] Name: Daria Mario Age: 19 yrs Sex: Female : 2000 Arrival Date: 12/28/2019 Time: 20:09 Bed 14 Private MD: ED Physician Jefferson Walters HPI: 12/27 21:47 This 19 yrs old Female presents to ER via Ambulatory with complaints of snw Vaginal Bleeding, + Preg <12wks. 21:47 The patient presents with vaginal bleeding that is with clots. Onset: The snw symptoms/episode began/occurred suddenly, yesterday. Associated signs and symptoms: Pertinent positives: lower abd pain. Severity of symptoms: At their worst the symptoms were moderate. The patient has experienced a previous episode, yesterday. The patient has been recently seen at the [facility] Emergency Department, yesterday, for similar complaints labs were performed. 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 - Social history:: Smoking status: Patient denies any tobacco usage or history of. ROS: 21:39 Constitutional: Negative for fever, chills, and weight loss, Eyes: Negative for injury, snw pain, redness, and discharge, ENT: Negative for injury, pain, and discharge, Neck: Negative for injury, pain, and swelling, Cardiovascular: Negative for chest pain, palpitations, and edema, Respiratory: Negative for shortness of breath, cough, wheezing, and pleuritic chest pain, Back: Negative for injury and pain, : Negative for injury, bleeding, discharge, and swelling, MS/Extremity: Negative for injury and deformity, Skin: Negative for injury, rash, and discoloration, Neuro: Negative for headache, weakness, numbness, tingling, and seizure, Psych: Negative for depression, anxiety, suicide ideation, homicidal ideation, and hallucinations. 21:39 Abdomen/GI: Positive for abdominal pain, vaginal bleeding, large clots. Exam: 21:38 Constitutional: This is a well developed, well nourished patient who is awake, alert, snw and in no acute distress. Head/Face: Normocephalic, atraumatic. Eyes: Pupils equal round and reactive to light, extra-ocular motions intact. Lids and lashes normal. Conjunctiva and sclera are non-icteric and not injected. Cornea within normal limits. Periorbital areas with no swelling, redness, or edema. ENT: Nares patent. No nasal discharge, no septal abnormalities noted. Tympanic membranes are normal and external auditory canals are clear. Oropharynx with no redness, swelling, or masses, exudates, or evidence of obstruction, uvula midline. Mucous membranes moist. Neck: Trachea midline, no thyromegaly or masses palpated, and no cervical lymphadenopathy. Supple, full range of motion without nuchal rigidity, or vertebral point tenderness. No Meningismus. Chest/axilla: Normal chest wall appearance and motion. Nontender with no deformity. No lesions are appreciated. Cardiovascular: Regular rate and rhythm with a normal S1 and S2. No gallops, murmurs, or rubs. Normal PMI, no JVD. No pulse deficits. Respiratory: Lungs have equal breath sounds bilaterally, clear to auscultation and percussion. No rales, rhonchi or wheezes noted. No increased work of breathing, no retractions or nasal flaring. Back: No spinal tenderness. No costovertebral tenderness. Full range of motion. Skin: Warm, dry with normal turgor. Normal color with no rashes, no lesions, and no evidence of cellulitis. MS/ Extremity: Pulses equal, no cyanosis. Neurovascular intact. Full, normal range of motion. Neuro: Awake and alert, GCS 15, oriented to person, place, time, and situation. Cranial nerves II-XII grossly intact. Motor strength 5/5 in all extremities. Sensory grossly intact. Cerebellar exam normal. Normal gait. Psych: Awake, alert, with orientation to person, place and time. Behavior, mood, and affect are within normal limits. 21:38 Abdomen/GI: Inspection: abdomen appears normal, Bowel sounds: normal, in all quadrants, Palpation: moderate abdominal tenderness, in the suprapubic area. Vital Signs: 20:20 BP 114 / 83; Pulse 92; Resp 16; Pulse Ox 100% ; Weight 98.43 kg; Height 5 ft. 2 in. rv (157.48 cm); Pain 10/10; 20:31 Temp 98.8(O); mg2 22:01 BP 100 / 50; Pulse 76; Resp 18; Pulse Ox 100% ; mg2 20:20 Body Mass Index 39.69 (98.43 kg, 157.48 cm) rv MDM: 20:55 Patient medically screened. snw 21:41 ED course: +iup 12/25/19, No activity noted at that time. Left 7cm ovarian cyst on snw that exam. Repeat US today shows questionable thickening of uterine lining, unable to assess as pt refused intravaginal ultrasound. Left ovarian cyst measures 6cm today. 21:46 Data reviewed: vital signs, nurses notes, old medical records, IUP, 7cm Left Ovarian snw cyst. qG [id number]. Counseling: I had a detailed discussion with the patient and/or guardian regarding: the historical points, exam findings, and any diagnostic results supporting the discharge/admit diagnosis, lab results, radiology results, the need for outpatient follow up, an OB/Gyne specialist. 12/27 20:20 Order name: Abo/rh Typing; Complete Time: 20:59 mg2 12/27 20:20 Order name: Basic Metabolic Panel; Complete Time: 20:55 mg2 12/27 20:21 Order name: CBC with Diff; Complete Time: 20:55 mg2 12/27 20:32 Order name: Urine Dipstick--Ancillary (enter results); Complete Time: 20:48 ar5 12/27 20:32 Order name: Urine --Ancillary (enter results); Complete Time: 20:48 ar5 12/27 21:18 Order name: HCG-Quantitative; Complete Time: 22:01 mg2 12/27 20:21 Order name: IV Saline Lock; Complete Time: 20:31 mg2 12/27 20:21 Order name: Labs collected and sent; Complete Time: 20:31 mg2 12/27 20:21 Order name: NPO; Complete Time: 20:31 mg2 12/27 20:21 Order name: Urine Dipstick-Ancillary (obtain specimen); Complete Time: 20:30 mg2 12/27 20:54 Order name: 1St Trimest Single 1St Fetus; Complete Time: 21:17 EDMS Administered Medications: 21:05 Drug: [place] 5 mg-325 mg 1 tabs Route: PO; mg2 22:00 Follow up: Response: No adverse reaction mg2 22:24 Drug: [place] 5 mg-325 mg 1 tabs Route: PO; mg2 22:24 Follow up: Response: No adverse reaction; Medication administered at discharge. mg2 Point of Care Testing: Urine : 22:01 hCG Reading: Positive; Control Reading: Positive; mg2 Disposition: 12/28 06:44 Co-signature as Attending Physician, Jefferson Walters MD. [email or web address] Disposition: 12/28/19 22:07 Discharged to Home. Impression: Spontaneous . - Condition is Stable. - Discharge Instructions: Miscarriage. - Prescriptions for Vitamin 27- 0.8 mg Oral Tablet - take 1 tablet by ORAL route once daily; 60 tablet. Diclofenac Sodium 75 mg Oral Tablet Sustained Release - take 1 tablet by ORAL route 2 times per day; 30 tablet. - Medication Reconciliation Form, Thank You Letter, Antibiotic Education, Prescription Opioid Use form. - Follow up: Emergency Department; When: As needed; Reason: Worsening of condition. Follow up: Private Physician; When: 1 - 2 days; Reason: Recheck today's complaints, Continuance of care. Signatures: Dispatcher [employer] EDTN Maria Esther Lizama, ELE-C SEMICONDUCTOR PROCESSING TECHNICIAN-Csnw Ez Palafox RN RN mg2 Joni Bucio RN RN rv Jefferson Walters MD MD 7 Corrections: (The following items were deleted from the chart) 12/27 20:54 20:23 Transvaginal Ob+US.RAD.BRZ ordered. [facility] 21:45 21:41 ED course: +iup 12/25/19, No activity noted at that time. Left 7mm ovarian snw cyst on that exam. Repeat US today shows questionable thickening of uterine lining, unable to assess as pt refused intravaginal ultrasound. Left ovarian cyst measures 6mm today. snw 22:16 22:07 12/28/2019 22:07 Discharged to Home. Impression: Spontaneous . Condition mg2 is Stable. Forms are Medication Reconciliation Form, Thank You Letter, Antibiotic Education, Prescription Opioid Use. Follow up: Emergency Department; When: As needed; Reason: Worsening of condition. Follow up: Private Physician; When: 1 - 2 days; Reason: Recheck today's complaints, Continuance of care. snw 22:24 22:16 12/28/2019 22:07 Discharged to Home. Impression: Spontaneous . Condition snw is Stable. Discharge Instructions: Miscarriage. Prescriptions for Vitamin 27-0.8 mg Oral Tablet - take 1 tablet by ORAL route once daily; 60 tablet, Diclofenac Sodium 75 mg Oral Tablet Sustained Release - take 1 tablet by ORAL route 2 times per day; 30 tablet. and Forms are Medication Reconciliation Form, Thank You Letter, Antibiotic Education, Prescription Opioid Use. Follow up: Emergency Department; When: As needed; Reason: Worsening of condition. Follow up: Private Physician; When: 1 - 2 days; Reason: Recheck today's complaints, Continuance of care. mg2
[2020-01-02 16:54] VITALS: O2SAT 100
[2020-01-02 16:55] VITALS: TEMP 98.8
[2020-01-02 16:56] VITALS: BP 100/50
== END 2019-12-28 22:24 | disposition home or self-care (01) ==
LOC: ER 20:08
DX: O03.9 Complete or unspecified spontaneous abortion without complication (principal)
CPT/HCPCS: 36415; 76801; 80048; 81003; 81025; 84702; 85025; 86900; 86901; 99284

== ENCOUNTER 2020-05-15 11:55 | Emergency (ER) | payer OTHER ==
--- OUTSIDE RECORDS SUMMARY | 2020-05-15 11:57 | XMS REPORT | Continuity of Care Document ---
:2000 Author Organization [facility] t Address [address] [place] [address] [address]. [address] [place] [address] Care Team Providers Name Role Phone Pcp, Does Not Have A Attending Clinician Problems This patient has no known problems. Allergies, Adverse Reactions, Alerts This patient has no known allergies or adverse reactions. Medications This patient has no known medications. Procedures This patient has no known procedures. 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
[2020-05-15 13:57] LABS: SARS-COV-2 RT PCR POSITIVE (NEGATIVE)
--- NOTE | 2020-05-15 14:07 | ER ---
Nurse's Notes [facility] Name: Daria Mario Age: 20 yrs Sex: Female : 2000 Arrival Date: 05/15/2020 Time: 11:57 Bed 30 Private MD: Diagnosis: Coronavirus infection, unspecified Presentation: 05/15 12:27 Chief complaint: Patient states: fatigue, nasal congestion, cough and sneezing that ss began 1 week ago. Pt reports that she began to feel better this past Thursday, but when she went to work she was still very fatigued. Coronavirus screen: Client presents with at least one sign or symptom that may indicate coronavirus-19. Standard/surgical mask placed on the client. Ebola Screen: Patient denies exposure to infectious person. Patient denies travel to an Ebola-affected area in the 21 days before illness onset. Initial Sepsis Screen: Does the patient meet any 2 criteria? No. Patient's initial sepsis screen is negative. Does the patient have a suspected source of infection? No. Patient's initial sepsis screen is negative. Risk Assessment: Do you want to hurt yourself or someone else? Patient reports no desire to harm self or others. Onset of symptoms was May 08, 2020. 12:27 Method Of Arrival: Ambulatory ss 12:27 Acuity: ISABELL 4 ss Historical: - Allergies: 12:30 No Known Allergies; ss - Home Meds: 12:30 "inhaler" [Active]; ss - PMHx: 12:30 probable asthma; ss - PSHx: 12:30 Tonsillectomy; ss - Immunization history:: Adult Immunizations up to date. - Social history:: Smoking status: Patient denies any tobacco usage or history of. Screenin:27 Abuse screen: Denies threats or abuse. Denies injuries from another. Nutritional ss screening: No deficits noted. Tuberculosis screening: Never had TB. Fall Risk None identified. Assessment: 12:27 General: Appears in no apparent distress. comfortable, Behavior is calm, cooperative, ss Reports fatigue for Fatigue x 1 week, got better but after returning to work became more fatigued. . Pain: Denies pain. Neuro: Level of Consciousness is awake, alert, obeys commands, Oriented to person, place, time, situation, Moves all extremities. Speech is normal, Facial symmetry appears normal. Cardiovascular: Capillary refill < 3 seconds is brisk in bilateral fingers. Respiratory: Reports cough that is non-productive, Airway is patent is compromised Respiratory effort is even, unlabored, Respiratory pattern is regular, symmetrical, Breath sounds are clear bilaterally. GI: No signs and/or symptoms were reported involving the gastrointestinal system. : No signs and/or symptoms were reported regarding the genitourinary system. Denies burning with urination, urinary frequency. EENT: Nares are clear Oral mucosa is moist. Derm: Skin is pink, warm \\T\\ dry. normal. Musculoskeletal: Circulation, motion, and sensation intact. Range of motion: intact in all extremities, Swelling absent. Vital Signs: 12:27 BP 125 / 80; Pulse 77; Resp 15; Temp 97.9(TE); Pulse Ox 100% on R/A; Height 5 ft. 2 in. ss (157.48 cm); Pain 0/10; ED Course: 11:57 Patient arrived in ED. ds1 12:15 Linda Torrez FNP-C is [facility]. kb 12:15 Iam Cotter MD is Attending Physician. kb 12:27 Patient has correct armband on for positive identification. Bed in low position. Call ss light in reach. 12:29 Triage completed. ss 12:30 Arm band placed on right wrist. ss 12:55 Kristyn Cain, SANKET is Primary Nurse. ss 14:14 No provider procedures requiring assistance completed. Patient did not have IV access ss during this emergency room visit. Administered Medications: No medications were administered Outcome: 14:06 Discharge ordered by MD. kb 14:14 Discharged to home ambulatory. ss 14:14 Condition: good 14:14 Discharge instructions given to patient, Instructed on discharge instructions, follow up and referral plans. Demonstrated understanding of instructions, follow-up care. 14:16 Patient left the ED. ss Signatures: Linda Torrez FNP-C FNP-Michelle Bobo ds1 Kristyn Cain, SANKET RN ss
[2020-05-15 15:11] VITALS: BP 125/80; TEMP 97.9; O2SAT 100
--- NOTE | 2020-05-16 14:16 | EDPHYS ---
Physician Documentation [facility] Name: Daria Mario Age: 20 yrs Sex: Female : 2000 Arrival Date: 05/15/2020 Time: 11:57 Bed 30 Private MD: ED Physician Iam Cotter HPI: 05/15 15:16 This 20 yrs old Female presents to ER via Ambulatory with complaints of kb Fatigued. 15:16 The patient or guardian reports cough, that is intermittent, described as mild, with no kb sputum, flu symptoms, myalgias, no appetite. Onset: The symptoms/episode began/occurred 1 week(s) ago. Severity of symptoms: At their worst the symptoms were mild, moderate, in the emergency department the symptoms are unchanged. Modifying factors: The symptoms are alleviated by nothing, the symptoms are aggravated by nothing. Associated signs and symptoms: The patient has no apparent associated signs or symptoms. The patient has not experienced similar symptoms in the past. The patient has not recently seen a physician. Pt reports fatigue, weakness, cough, sneezing and congestion for a week. Historical: - Allergies: 12:30 No Known Allergies; ss - Home Meds: 12:30 "inhaler" [Active]; ss - PMHx: 12:30 probable asthma; ss - PSHx: 12:30 Tonsillectomy; ss - Immunization history:: Adult Immunizations up to date. - Social history:: Smoking status: Patient denies any tobacco usage or history of. ROS: 15:15 Cardiovascular: Negative for chest pain, palpitations, and edema, Abdomen/GI: Negative kb for abdominal pain, nausea, vomiting, diarrhea, and constipation, Back: Negative for injury and pain, : Negative for injury, bleeding, discharge, and swelling, MS/Extremity: Negative for injury and deformity, Skin: Negative for injury, rash, and discoloration. 15:15 Constitutional: Positive for body aches, chills, fatigue, malaise. 15:15 ENT: Positive for sinus congestion. 15:15 Respiratory: Positive for cough, Negative for dyspnea on exertion, hemoptysis, orthopnea, pleurisy, shortness of breath, sputum production, wheezing. 15:15 Neuro: Positive for weakness. Exam: 15:15 Constitutional: This is a well developed, well nourished patient who is awake, alert, kb and in no acute distress. Head/Face: Normocephalic, atraumatic. Chest/axilla: Normal chest wall appearance and motion. Nontender with no deformity. No lesions are appreciated. Cardiovascular: Regular rate and rhythm with a normal S1 and S2. No gallops, murmurs, or rubs. Normal PMI, no JVD. No pulse deficits. Respiratory: Lungs have equal breath sounds bilaterally, clear to auscultation and percussion. No rales, rhonchi or wheezes noted. No increased work of breathing, no retractions or nasal flaring. Abdomen/GI: Soft, non-tender, with normal bowel sounds. No distension or tympany. No guarding or rebound. No evidence of tenderness throughout. Back: No spinal tenderness. No costovertebral tenderness. Full range of motion. Skin: Warm, dry with normal turgor. Normal color with no rashes, no lesions, and no evidence of cellulitis. MS/ Extremity: Pulses equal, no cyanosis. Neurovascular intact. Full, normal range of motion. Neuro: Awake and alert, GCS 15, oriented to person, place, time, and situation. Cranial nerves II-XII grossly intact. Motor strength 5/5 in all extremities. Sensory grossly intact. Cerebellar exam normal. Normal gait. Vital Signs: 12:27 BP 125 / 80; Pulse 77; Resp 15; Temp 97.9(TE); Pulse Ox 100% on R/A; Height 5 ft. 2 in. ss (157.48 cm); Pain 0/10; MDM: 12:23 Patient medically screened. kb 15:15 Data reviewed: vital signs, nurses notes. Data interpreted: Pulse oximetry: on room air kb is 100 %. Interpretation: normal. Counseling: I had a detailed discussion with the patient and/or guardian regarding: the historical points, exam findings, and any diagnostic results supporting the discharge/admit diagnosis, lab results, the need for outpatient follow up, a family practitioner, to return to the emergency department if symptoms worsen or persist or if there are any questions or concerns that arise at home. 05/15 13:57 Order name: COVID-19/FLU A+B; Complete Time: 13:59 EDMS Administered Medications: No medications were administered Disposition: 18:39 Co-signature as Attending Physician, Iam Cotter MD I agree with the assessment and hoda plan of care. Disposition: 05/15/20 14:06 Discharged to Home. Impression: Coronavirus infection, unspecified. - Condition is Stable. - Discharge Instructions: Viral Respiratory Infection, Ydrl-Oq-Aizk, COVID-19. - Medication Reconciliation Form, Thank You Letter, Antibiotic Education, Prescription Opioid Use form. - Follow up: Emergency Department; When: As needed; Reason: Worsening of condition. Follow up: Private Physician; When: 2 - 3 days; Reason: Recheck today's complaints, Continuance of care, Re-evaluation by your physician. Signatures: Dispatcher [employer] [facility] Linda Torrez, VISION MIXER-C VISION MIXER-Iam Santana MD MD cha Smirch, Shelby, RN RN ss Corrections: (The following items were deleted from the chart) 13:04 12:24 CORONAVIRUS+.BRZ ordered. [facility] 14:16 14:06 05/15/2020 14:06 Discharged to Home. Impression: Coronavirus infection, ss unspecified. Condition is Stable. Forms are Medication Reconciliation Form, Thank You Letter, Antibiotic Education, Prescription Opioid Use. Follow up: Emergency Department; When: As needed; Reason: Worsening of condition. Follow up: Private Physician; When: 2 - 3 days; Reason: Recheck today's complaints, Continuance of care, Re-evaluation by your physician. kb
== END 2020-05-15 14:16 | disposition home or self-care (01) ==
LOC: ER 11:55
DX: U07.1 COVID-19 (principal)
CPT/HCPCS: 0240U; 99281

== ENCOUNTER 2021-02-22 03:52 | Emergency (ER) | payer OTHER ==
[2021-02-22 04:43] LABS: Absolute Lymphocytes (CBC) 1.5 K/uL (0.7-4.9); Basophils % 0.4 % (0-1.3); Lymphocytes % 8.7 % (15.3-44.8); RBC Red Blood Cell Count 4.48 M/uL (3.86-4.86)
[2021-02-22 04:45] LABS: Urine Blood Trace-lysed (Negative); Urine Glucose Negative (Negative); Urine Protein Negative (Negative); Urine Specific Gravity 1.025 (1.005-1.030); Urine pH 5.5 (5.0-7.0)
[2021-02-22] MEDS ORDERED: NA CHLORIDE 0.9% 1,000 ML ONE (05:01)
[2021-02-22] MEDS ORDERED: ONDANSETRON 4 MG/2 ML VIAL ONE (05:01)
[2021-02-22 05:02] LABS: ALT/SGPT 14 U/L (12-78); AST/SGOT 5 U/L (15-37); Albumin 3.1 g/dL (3.4-5.0); Alkaline Phosphatase 91 U/L (45-117); BUN Blood Urea Nitrogen 7 mg/dL (7-18); Bicarbonate 23 mmol/L (21-32); Bilirubin Direct < 0.1 mg/dL (0-0.2); Bilirubin Total 0.3 mg/dL (0.2-1.0); Glucose Level 112 mg/dL (74-106); Lipase 97 U/L (73-393); Potassium 3.7 mmol/L (3.5-5.1); Protein, Total 7.7 g/dL (6.4-8.2); Sodium Level 138 mmol/L (136-145)
[2021-02-22 05:50] LABS: Urine Bacteria >50 /HPF (<20); Urine Mucus 2+ /HPF (NONE SEEN); Urine RBC <5 /HPF (NONE SEEN)
[2021-02-22] MEDS ORDERED: NITROFURAN MACRO 100 MG CAP PO ONE (07:00)
--- NOTE | 2021-02-22 08:51 | EDPHYS ---
Physician Documentation [facility] Name: Daria Mario Age: 21 yrs Sex: Female : 2000 Arrival Date: 02/22/2021 Time: 03:55 Bed 25 Private MD: ED Physician Lukas Guy HPI: 02/22 04:51 This 21 yrs old Female presents to ER via Ambulatory with complaints of rn Nausea, vomiting, diarrhea. 04:51 The patient presents to the emergency department with nausea, vomiting, diarrhea. rn Onset: The symptoms/episode began/occurred last night. Possible causes: unknown. The symptoms are aggravated by nothing. The symptoms are alleviated by nothing. Associated signs and symptoms: Pertinent positives: diarrhea, nausea, vomiting, Pertinent negatives: abdominal pain, fever, GI bleeding. Severity of symptoms: At their worst the symptoms were moderate in the emergency department the symptoms have improved. The patient has not experienced similar symptoms in the past. The patient has not recently seen a physician. Patient reports nausea/vomiting/diarrhea. Denies fever. No blood in stool. Reports 5 months . No focal abdominal pain reports just feels queasy and cramping throughout. No trauma. No vaginal bleeding or leakage of fluid. No known sick contacts.. Historical: - Allergies: 04:06 No Known Allergies; sj1 - Home Meds: 04:06 None [Active]; sj1 - PMHx: 05:11 probable asthma; dc2 - PSHx: 04:06 None; sj1 - Immunization history:: Client reports having NOT received the Covid vaccine. - Social history:: Smoking status: Patient denies any tobacco usage or history of. Patient/guardian denies using alcohol, street drugs. - Family history:: not pertinent. - Hospitalizations: : No recent hospitalization is reported. ROS: 04:53 Constitutional: Negative for fever, chills, and weight loss, Eyes: Negative for injury, rn pain, redness, and discharge, Neck: Negative for injury, pain, and swelling, Cardiovascular: Negative for chest pain, palpitations, and edema, Respiratory: Negative for shortness of breath, cough, wheezing, and pleuritic chest pain, Abdomen/GI: Positive for nausea/vomiting/diarrhea Back: Negative for injury and pain, : Negative for injury, bleeding, discharge, and swelling, MS/Extremity: Negative for injury and deformity, Skin: Negative for injury, rash, and discoloration, Neuro: Negative for headache, weakness, numbness, tingling, and seizure. Exam: 04:53 Constitutional: This is a well developed, well nourished patient who is awake, alert, rn and in no acute distress. Ambulatory to room without assistance Head/Face: Normocephalic, atraumatic. Eyes: Periorbital areas with no swelling, redness, or edema. ENT: Dry mucous membranes Cardiovascular: Tachycardic, regular. No pulse deficits. Respiratory: No increased work of breathing, no retractions or nasal flaring. Abdomen/GI: Soft, nontender, no guarding or peritoneal signs Skin: Warm, dry MS/ Extremity: Pulses equal, no cyanosis. Neuro: Awake and alert, GCS 15 Vital Signs: 04:04 Pulse 121; Resp 18 S; Temp 98.5(O); Pulse Ox 100% on R/A; Weight 107.05 kg (R); Height [facility] 5 ft. 2 in. (157.48 cm); Pain 4/10; 04:12 BP 114 / 68; Pulse 103; Resp 17; Pulse Ox 100% ; Pain 5/10; dc2 05:30 BP 120 / 74; Pulse 101; Resp 17; Pulse Ox 100% ; Pain 3/10; dc2 06:30 BP 125 / 69; Pulse 107; Resp 18; Temp 97.3(O); Pulse Ox 100% ; Pain 0/10; dc2 04:04 Body Mass Index 43.16 (107.05 kg, 157.48 cm) [facility] MDM: 03:57 Patient medically screened. rn 02/22 04:30 Order name: Basic Metabolic Panel; Complete Time: 05:03 rn 02/22 04:30 Order name: CBC with Diff; Complete Time: 04:52 rn 02/22 04:30 Order name: Hepatic Function; Complete Time: 05:03 rn 02/22 04:30 Order name: Lipase; Complete Time: 05:03 rn 02/22 04:30 Order name: Urine Microscopic Only; Complete Time: 06:09 rn 02/22 04:30 Order name: IV Saline Lock; Complete Time: 04:34 rn 02/22 04:30 Order name: Flu; Complete Time: 06:09 rn 02/22 04:44 Order name: Urine Dipstick-Ancillary; Complete Time: 04:52 EDMS 02/22 05:14 Order name: SARS-COV-2 RT PCR EDNC 02/22 05:51 Order name: Urine Culture EDNC 02/22 04:30 Order name: Labs collected and sent; Complete Time: 04:34 rn 02/22 04:30 Order name: Urine Dipstick-Ancillary (obtain specimen); Complete Time: 04:34 rn 02/22 07:22 Order name: Labs - recollect needed: 3rd recollect for covid swab "error with machine"; eb Complete Time: 07:46 Administered Medications: 04:30 Drug: NS 0.9% 1000 ml Route: IV; Rate: 1000 ml; Site: left antecubital; Delivery: dc2 Primary tubing; 05:30 Follow up: IV Status: Completed infusion; IV Intake: 1000ml dc2 04:33 Drug: Zofran (Ondansetron) 4 mg Route: IVP; Site: left antecubital; dc2 05:15 Follow up: Response: Nausea is decreased dc2 06:30 Drug: Nitrofurantoin 100 mg Route: PO; dc2 09:38 Follow up: Response: No adverse reaction ss Disposition Summary: 02/22/21 08:51 Discharge Ordered Location: Home cp Problem: new cp Symptoms: have improved cp Condition: Stable cp Diagnosis - Diarrhea, unspecified cp - Nausea with vomiting, unspecified cp - Infections of other parts of urinary tract in , second trimester cp - Other specified related conditions, second trimester cp Followup: cp - With: Private Physician - When: 1 - 2 days - Reason: Recheck today's complaints Discharge Instructions: - Discharge Summary Sheet rn - Urinary Tract Infection, Adult rn - Abdominal Pain During cp - Food Choices to Help Relieve Diarrhea, Adult cp - Diarrhea, Adult cp - Nausea and Vomiting, Adult cp - Second Trimester of cp Forms: - Medication Reconciliation Form cp - Thank You Letter cp - Antibiotic Education cp - Prescription Opioid Use cp - Work release form eb Prescriptions: - ondansetron 4 mg Oral tablet,disintegrating - take 1 tablet by ORAL route every 8 hours As needed; 15 tablet; Refills: 0, rn Product Selection Permitted - Macrobid 100 mg Oral Capsule - take 1 capsule by ORAL route every 12 hours for 7 days; 14 capsule; Refills: 0, rn Product Selection Permitted Signatures: Dispatcher [employer] EDMS Lukas Guy MD MD rn Iam Corbett PA PA cp Claudia Brown Denise, RN RN dc2 Sunita Almaguer RN RN sj1 Kristyn Cain RN ss Corrections: (The following items were deleted from the chart) 05:12 04:06 PMHx: probable asthma; sj1 dc2 05:14 04:30 CORONAVIRUS+MR.LAB.BRZ ordered. EDMS EDMS 08:53 08:51 UTI/ Urinary tract infection, site not specified cp cp
--- NOTE | 2021-02-22 08:51 | ER ---
Nurse's Notes [facility] Name: Daria Mario Age: 21 yrs Sex: Female : 2000 Arrival Date: 02/22/2021 Time: 03:55 Bed 25 Private MD: Diagnosis: Diarrhea, unspecified;Nausea with vomiting, unspecified;Infections of other parts of urinary tract in , second trimester;Other specified related conditions, second trimester Presentation: 02/22 04:04 Chief complaint: Patient states: generalized abd pain, vomiting, chills, and diarrhea sj1 (6 episodes) since midnight, 22 wks preg. denies vag bleeding. Coronavirus screen: Vaccine status: Patient reports being unvaccinated. Ebola Screen: No symptoms or risks identified at this time. Initial Sepsis Screen: Does the patient meet any 2 criteria? No. Patient's initial sepsis screen is negative. Does the patient have a suspected source of infection? No. Patient's initial sepsis screen is negative. Risk Assessment: Do you want to hurt yourself or someone else? Patient reports no desire to harm self or others. Onset of symptoms was February 22, 2021. 04:04 Method Of Arrival: Ambulatory sj1 04:04 Acuity: ISABELL 3 sj1 Triage Assessment: 04:06 General: Appears in no apparent distress. Behavior is calm, cooperative, appropriate sj1 for age. Pain: Complains of pain in abdomen Pain does not radiate. Pain currently is 4 out of 10 on a pain scale. at worst was 10 out of 10 on a pain scale. level that patient reports is acceptable is 0 out of 10 on a pain scale. Quality of pain is described as crampy, Pain began suddenly. EENT: No signs and/or symptoms were reported regarding the EENT system. Neuro: Level of Consciousness is awake, alert, obeys commands, Oriented to person, place, time, situation. Cardiovascular: No deficits noted. Respiratory: No deficits noted. GI: Reports lower abdominal pain, upper abdominal pain, cramping, diarrhea, vomiting. : No deficits noted. Derm: No signs and/or symptoms reported regarding the dermatologic system. Musculoskeletal: No deficits noted. Historical: - Allergies: 04:06 No Known Allergies; sj1 - Home Meds: 04:06 None [Active]; sj1 - PMHx: 05:11 probable asthma; dc2 - PSHx: 04:06 None; sj1 - Immunization history:: Client reports having NOT received the Covid vaccine. - Social history:: Smoking status: Patient denies any tobacco usage or history of. Patient/guardian denies using alcohol, street drugs. - Family history:: not pertinent. - Hospitalizations: : No recent hospitalization is reported. Screenin:08 Abuse screen: Denies threats or abuse. Denies injuries from another. Nutritional sj1 screening: No deficits noted. Tuberculosis screening: No symptoms or risk factors identified. Fall Risk None identified. Assessment: 04:10 General: Appears in no apparent distress. comfortable, obese, well groomed, well dc2 developed, Behavior is calm, cooperative. Neuro: No deficits noted. Cardiovascular: No deficits noted. Capillary refill < 3 seconds toes. Respiratory: No deficits noted. Airway is patent Respiratory effort is Respiratory pattern is regular, Breath sounds are clear bilaterally. Denies cough, shortness of breath. GI: Bowel sounds present X 4 quads. Abd is non tender. : No deficits noted. No signs and/or symptoms were reported regarding the genitourinary system. Derm: No deficits noted. Musculoskeletal: No deficits noted. Capillary refill < 3 seconds, is brisk. 04:15 Reassessment: Heart Tones 168. dc2 06:15 Reassessment: Pt ambulate to bathroom, appears short winded on return to bed, pt states dc2 always is a little short winded after walking since shes been . In nad. VSS. 06:30 Reassessment: Per Dr. Guy, lab needs repeat covid swab, something about dc2 malfunctioning machine. Pr made aware and reswabbed at this time. Patient denies pain at this time. 07:22 Reassessment: Patient appears in no apparent distress at this time. awaiting covid ss results. Vital Signs: 04:04 Pulse 121; Resp 18 S; Temp 98.5(O); Pulse Ox 100% on R/A; Weight 107.05 kg (R); Height sj1 5 ft. 2 in. (157.48 cm); Pain 4/10; 04:12 BP 114 / 68; Pulse 103; Resp 17; Pulse Ox 100% ; Pain 5/10; dc2 05:30 BP 120 / 74; Pulse 101; Resp 17; Pulse Ox 100% ; Pain 3/10; dc2 06:30 BP 125 / 69; Pulse 107; Resp 18; Temp 97.3(O); Pulse Ox 100% ; Pain 0/10; dc2 04:04 Body Mass Index 43.16 (107.05 kg, 157.48 cm) sj1 ED Course: 03:55 Patient arrived in ED. bp1 03:57 Lukas Guy MD is Attending Physician. rn 03:58 Teddy Latham, SANKET is Primary Nurse. mr2 03:58 Primary Nurse role handed off by Teddy Latham, RN dc2 03:58 Carrie Christina RN is Primary Nurse. dc2 04:05 Inserted saline lock: 18 gauge in left antecubital area, using aseptic technique. Blood dc2 collected. 04:06 Triage completed. sj1 04:06 Arm band placed on. sj1 04:08 Patient has correct armband on for positive identification. Placed in gown. Bed in low sj1 position. Call light in reach. Side rails up X 1. 04:08 No provider procedures requiring assistance completed. sj1 04:10 monitoring engineer on. Pulse ox on. NIBP on. dc2 04:10 Door closed. Warm blanket given. dc2 04:16 Assisted to bathroom. dc2 04:30 Bed in low position. Call light in reach. Side rails up X 1. monitoring engineer on. Pulse dc2 ox on. NIBP on. Lights dimmed. Warm blanket given. 04:34 Basic Metabolic Panel Sent. dc2 04:34 CBC with Diff Sent. dc2 04:34 Hepatic Function Sent. dc2 04:34 Lipase Sent. dc2 04:34 Urine Microscopic Only Sent. dc2 04:46 Flu Sent. dc2 05:15 Awaiting lab results. dc2 05:15 No apparent distress. Resting quietly. dc2 05:30 Bed in low position. Call light in reach. Side rails up X 1. monitoring engineer on. Pulse dc2 ox on. NIBP on. 06:30 ED physician to see patient. dc2 06:30 COVID swab sent to lab. dc2 07:03 Report given to SANKET Simons. dc2 09:15 IV discontinued, intact, bleeding controlled, No redness/swelling at site. Pressure ss dressing applied. Administered Medications: 04:30 Drug: NS 0.9% 1000 ml Route: IV; Rate: 1000 ml; Site: left antecubital; Delivery: dc2 Primary tubing; 05:30 Follow up: IV Status: Completed infusion; IV Intake: 1000ml dc2 04:33 Drug: Zofran (Ondansetron) 4 mg Route: IVP; Site: left antecubital; dc2 05:15 Follow up: Response: Nausea is decreased dc2 06:30 Drug: Nitrofurantoin 100 mg Route: PO; dc2 09:38 Follow up: Response: No adverse reaction ss Intake: 05:30 IV: 1000ml; Total: 1000ml. dc2 Outcome: 08:51 Discharge ordered by . cp 09:15 Discharged to home ambulatory. ss 09:15 Condition: good 09:15 Discharge instructions given to patient, family, Instructed on discharge instructions, follow up and referral plans. medication usage, Demonstrated understanding of instructions, follow-up care, medications, Prescriptions given X 2. 09:37 Patient left the ED. ss Signatures: Lukas Guy MD MD rn Smirch, Shelby RN RN ss Iam Corbett, PA PA Julia Canada Mike RN RN mr2 Carrie Christina RN RN dc2 Sunita Almaguer RN RN sj1 Corrections: (The following items were deleted from the chart) 05:12 04:06 PMHx: probable asthma; sj1 dc2
[2021-02-22 09:44] VITALS: O2SAT 100
[2021-02-22 09:49] VITALS: BP 125/69; TEMP 97.3
== END 2021-02-22 09:37 | disposition home or self-care (01) ==
LOC: ER 03:52
DX: O23.42 Unspecified infection of urinary tract in pregnancy, second trimester (principal); N39.0 Urinary tract infection, site not specified; O26.92 Pregnancy related conditions, unspecified, second trimester; Z3A.22 22 weeks gestation of pregnancy; R11.2 Nausea with vomiting, unspecified; R19.7 Diarrhea, unspecified; Z20.822 Contact with and (suspected) exposure to COVID-19
CPT/HCPCS: 96361; 87088; 85025; 87086; 80048; 36415; 80076; 83690; 87804 ×2; 96374; 99284; U0003; J7030; J2405; 81003; 81015

== ENCOUNTER 2022-03-16 16:04 | Emergency (ER) | payer OTHER ==
--- OUTSIDE RECORDS SUMMARY | 2022-03-16 16:08 | XMS REPORT | Continuity of Care Document ---
:2000 Author Organization [facility] t Address [address] [place] [address] Care Team Providers Name Role Phone Michael Soler Primary Care Physician [phone] Doctor Unassigned, [place] Attending Clinician Unavailable Ann-Marie Avelar Attending Clinician Lab, Ang - Db Attending Clinician Unavailable ANN-MARIE OBRIEN Attending Clinician Unavailable NASRIN BUNN Attending Clinician Unavailable Julia Barnett Attending Clinician Nasrin Bunn MD Attending Clinician Provider[facility] Attending Clinician Unavailable PERI BROOKS Attending Clinician Unavailable Peri Ernst Attending Clinician DG CARTER Attending Clinician Unavailable Dg Carter MD Attending Clinician Brady Herrmann MD Attending Clinician Dell Vicente MD Attending Clinician Natalie Yeh RN Attending Clinician Unavailable Joana Queen RN Attending Clinician Unavailable MICHAEL WHITE Attending Clinician Unavailable Lab, Ang-Rmchp Attending Clinician Unavailable Michael Soler Attending Clinician [phone] Ultrasound, Ang-Mfm Attending Clinician Unavailable Mitch Mobley MD Attending Clinician MITCH MOBLEY Attending Clinician Unavailable MITCH MOBLEY Attending Clinician Unavailable SAKINA FALLON Attending Clinician Unavailable Raj Willson Attending Clinician Everardo MARLOW, Sakina Attending Clinician JAKE TENA Attending Clinician Unavailable Darinel MARLOW, Jake Renteria Attending Clinician Johnson Jose PURDY Attending Clinician [phone] Rahat Mireles MD Attending Clinician [phone] RAHAT MIRELES Attending Clinician Unavailable JOSE ORNELAS Attending Clinician Unavailable Provider, Ang-Rmchp Temp Attending Clinician Unavailable Khoi Dong MD, Vee Attending Clinician [phone] Vinod COLES, Patrica Mcgill Attending Clinician Unavailable RAJ LORA Attending Clinician Unavailable Pcp, Patient Does Not Have A Attending Clinician [phone] Cee Ku Attending Clinician DG CARTER Admitting Clinician Unavailable Dg Carter MD Admitting Clinician Payers Payer Name Policy Type Policy Number Effective Date Expiration Date S carlos MEDICAID DANIA PENDING 2019 PENDING 00:00:00 Problems Condition Condition Condition Status Onset Resolution Last Treating Co mments Source Name Details Category Date Date Treatment Clinician Date Encounter Encounter Disease Active Uni vers for other for other 3-22 ity of general general 00:00: [place] counseling counseling 00 Me dical or advice or advice Bran ch on on contracept contracept ion ion 37 weeks 37 weeks Disease Active Unive rs gestation gestation 2- ity of of of 00:00: [place] 00 [facility] Anemia of Anemia of Disease Active Uni vers mother in mother in 05-22 [place] of , , [place] ante[place] antepartum 00 Me dical Branch Adnexal Adnexal Disease Active Univers mass mass 05-22 ity of 00:00: [place] 00 [facility] Obesity Obesity Disease Active Univers affecting affecting 1-19 [place] second 00 [facility] trimester trimester Bran ch Glucose Glucose Disease Active 2020-05 Univers tolerance tolerance 1-15 ity of test test 00:00: [place] abnormal abnormal 00 [facility] ER Morbid Morbid Disease Active Univers obesity obesity 6-28 ity of 00:00: [place] 00 [facility] History of History of Disease Active U nivers miscarriag miscarriag 6-28 it y of e, e, 00:00: [place] currently currently 00 [facility] , , Bran ch first first trimester trimester BMI BMI Disease Active Univers 45.0-49.9, 45.0-49.9, 6-28 it y of adult adult 00:00: [place] 00 [facility] Supervisio Supervisio Disease Active 2019- U nivers n of high n of high 9 ity of risk risk 00:00: [place] 00 [facility] in third in third Branch trimester trimester Primigravi Primigravi Disease Active 2019-0 U nivers da in da in 9-03 ity of third third 00:00: [place] trimester trimester 00 [facility] Branch Urinary Urinary Disease Active 2019- Univers tract tract 9- it[place] of infection [place] mother 00 [facility] during during Branch first first trimester trimester of of Allergies, Adverse Reactions, Alerts This patient has no known allergies or adverse reactions. Social History Social Habit Start Date Stop Date Quantity Comments Source Exposure to 2021-11-10 2021-11-20 Not sure [facility] SARS-CoV-2 00:00:00 13:30:00 [facility] (event) [place] Alcohol intake 2021-11-19 2021-11-19 Ex-drinker [facility] 00:00:00 00:00:00 (finding) [facility] Tobacco use and 2021-11-18 2021-11-18 Smokeless tobacco Un iversity of exposure 00:00:00 00:00:00 non-user [facility] Sex Assigned At [birth year] Universit y of 00:00:00 00:00:00 [facility] Smoking Status Start Date Stop Date Source Never smoked tobacco [facility] Medications Ordered Filled Start Stop Current Ordering Indication Dosage Frequency Signature Comments Components Source Medication Medication Date Date Medication? Clinician (SIG) Name Name No known No No known Unive rs medications 7-19 medication it y of 14:32: s [address] Immunizations Ordered Filled Immunization Date Status Comments Sour e Immunization Name Name TDAP 2021-04-08 Completed [facility] 00:00:00 [facility] Influenza Virus 2021-03-18 Completed Universit y of Vaccine Quad IM, 00:00:00 [facility] dical Preserv and ABX Branch Free 6 MO-64 YRS HPV 2010-11-26 Completed [facility] 00:00:00 [facility] Procedures This patient has no known procedures. Encounters Start End Encounter Admission Attending Care Care Encounter Source Date/Time Date/Time Type Type Clinicians Facility Department ID 2021-03-01 Emergency [facility] [id number] Univers 14:32:39 ity of [facility] 2021-11-25 2021-11-25 Patient Doctor [facility] 1.2.840.114 [id number] Univers 00:00:00 00:00:00 Secure Msg Unassigned, HEALTH 350.1.13.10 ity of [place] 4.2.7.2.686 Braulio as DON?BLEA [phone] [facility] [address] [place] MEDICAL OFFICE [facility] 2021-11-22 2021-11-22 Telephone Micah [facility] [id number] Univers 00:00:00 00:00:00 Ann-Marie Holaira 350.1.13.10 it y of [place] 4.2.7.2.686 Braulio as DON?BLEA [phone] [facility] [address] [place] MEDICAL OFFICE [facility] 2021-11-20 2021-11-20 Premix Concrete Batcher Lab, Ang - Db [facility] 1.2.840.1 [id number] Univers 14:30:00 14:45:00 Visit Ann-Marie Obrien [facility] 350.1.13.10 ity of [facility] 4.2.7.2.686 Braulio as DON?BLEA [phone] [facility] [address] [place] MEDICAL OFFICE [facility] 2021-11-20 2021-11-20 Outpatient R MICAH [facility] [id number] Univers 14:30:00 14:30:00 ANN-MARIE moss [facility] 2021-11-20 2021-11-20 Outpatient R MICAH [facility] [id number] Univers 14:30:00 14:30:00 ANN-MARIE moss [facility] 2021-11-19 2021-11-19 Outpatient R MICAH [facility] [id number] Univers 14:00:00 14:29:58 ANN-MARIEDIMPLE moss [facility] 2021-11-19 2021-11-19 [facility] 1.2.840.114 [id number] Univers 14:00:00 14:29:58 Visit Ann-Marie HEALTH 350.1.13.10 it y of [place] 4.2.7.2.686 Braulio as DON?BLEA [phone] [facility] [address] [place] MEDICAL OFFICE [facility] 2021-11-18 2021-11-18 Outpatient R TOMI [facility] [id number] Univers 18:40:00 19:08:20 NASRIN itmaricruz [facility] 2021-11-18 2021-11-18 Urgent GurpreetJulia obando [facility] 1.2.840. 114 [id number] Univers 18:40:00 19:08:20 Shiraz Bunn Nasrin HEALTH 350.1.13.10 ity of [place] 4.2.7.2.686 Braulio as DON?BLEA [phone] [facility] [address] [place] MEDICAL OFFICE [facility] 2021-11-18 2021-11-18 Letter Velia, [facility] [id number] Univers 00:00:00 00:00:00 (Out) [facility] HEALTH 350.1.13.10 it y of Urgent Care [place] 4.2.7.2.686 [place] DON?BLEA [phone] [address] MEDICAL OFFICE BUILDING 2021-07-23 2021-07-23 Outpatient R CECILIA [facility] [id number] Univers 13:30:00 14:22:06 ROSHUNDA ity o f [facility] 2021-07-23 2021-07-23 Office [facility] 1.2.840.114 [id number] Univers 13:30:00 14:22:06 Visit Shanianda R WELL SITE DRILLING ENGINEER 350.1.13.10 ity of REGIONAL 4.2.7.2.686 Braulio as MATERNAL [phone] [facility] ical & CHILD [address] [place] [address] 2021-06-26 2021-06-26 Outpatient Shelly BROOKS [facility] [id number] Univers 11:00:00 11:33:56 ROSNDA ity o f [facility] 2021-06-26 2021-06-26 Routine [facility] 1.2.840.114 [id number] Univers 11:00:00 11:33:56 Rosseferinonda R WELL SITE DRILLING ENGINEER 350.1.13.10 ity of Visit [facility] 4.2.7.2.686 Braulio as MATERNAL [phone] [facility] & CHILD [address] [place] [address] 2021-06-24 2021-06-24 Orders Doctor ESTHER 1.2.840.114 [id number] Univers 00:00:00 00:00:00 Only UnassignedRAZ 350.1.13.10 ity of [place] [facility] 4.2.7.2.686 Braulio as [phone] [facility] 009 Branch 2021-06-04 2021-06-06 Inpatient P EMMA [facility] MICHAEL [id number] Univers 12:40:00 20:07:00 DG moss of [facility] 2021-06-04 2021-06-06 Hospital ESTHER Carter 1.2.840.114 [id number] Univers 12:40:00 20:07:00 Encounter Dg CRANDALL 350.1.13.10 ity of HOSPITAL 4.2.7.2.686 Braulio as [phone] [facility] 133 Branch 2021-06-05 2021-06-05 Anesthesia Brady Herrmann 1.2.84 0.114 [id number] Univers 08:10:00 18:07:00 Event Dell Vicente 350.1.13.10 ity of HOSPITAL 4.2.7.2.686 Braulio as [phone] [facility] 132 Branch 2021-06-05 2021-06-05 [facility] [id number] Univers 09:15:00 09:15:00 ROSSEFERINONDA ity o f [facility] 2021-06-04 2021-06-04 Nurse ESTHER Yeh 1.2.840.114 [id number] Univers 00:00:00 00:00:00 Triage Natalie RAZ 350.1.13.10 it y [facility] 4.2.7.2.686 Braulio as [phone] [address] 2021-06-04 2021-06-04 Telephone [facility] [id number] Univers 00:00:00 00:00:00 Shanianda R WELL SITE DRILLING ENGINEER 350.1.13.10 ity of [facility] 4.2.7.2.686 Braulio as MATERNAL [phone] [facility] ical & CHILD [address] [place] [address] 2021-06-01 2021-06-01 Nurse Vishal SANTANA 1.2.840.114 [id number] Univers 00:00:00 00:00:00 Triage RAZ Ball 350.1.13.10 ity [facility] 4.2.7.2.686 Braulio as [phone] [address] 2021-06-01 2021-06-01 Telephone [facility] [id number] Univers 00:00:00 00:00:00 Hyacinthnda R WELL SITE DRILLING ENGINEER 350.1.13.10 ity of [facility] 4.2.7.2.686 Braulio as MATERNAL [id number] [facility] & [address] 2021-06-01 2021-06-01 Telephone Vishal SANTANA [id number] Univers 00:00:00 00:00:00 RAZ Ball 350.1.13.10 ity [facility] 4.2.7.2.686 Braulio as [phone] [address] 2021-05-31 2021-05-31 Outpatient R FROILAN [facility] [id number] Univers 13:30:00 13:30:00 MICHAEL ity o f [facility] 2021-05-31 2021-05-31 Premix Concrete Batcher Lab, Ang-Rmchp [facility] 1.2.840. 114 [id number] Univers 13:30:00 13:30:00 Visit JaydukeleaKpMichael C WELL SITE DRILLING ENGINEER 350.1.13. 10 ity of REGIONAL 4.2.7.2.686 Braulio as MATERNAL [phone] [facility] ical & CHILD [address] [place] [address] 2021-05-30 2021-05-30 Telephone [facility] [id number] Univers 00:00:00 00:00:00 Roshunda R WELL SITE DRILLING ENGINEER 350.1.13.10 ity of REGIONAL 4.2.7.2.686 Braulio as MATERNAL [phone] [facility] & CHILD [address] [place] [address] 2021-05-30 2021-05-30 Norman [facility] [id number] Univers 00:00:00 00:00:00 Roshunda R WELL SITE DRILLING ENGINEER 350.1.13.10 ity of REGIONAL 4.2.7.2.686 Braulio as MATERNAL [id number] [facility] & CHILD [address] [place] [address] 2021-05-30 2021-05-30 Telephone [facility] [id number] Univers 00:00:00 00:00:00 Rosseferinonda R WELL SITE DRILLING ENGINEER 350.1.13.10 ity of REGIONAL 4.2.7.2.686 Braulio as MATERNAL [id number] [facility] & CHILD [address] [place] [address] 2021-05-29 2021-05-29 Outpatient R CECILIA RIZEYNEP [facility] [id number] Univers 08:00:00 08:38:48 ROSHUNDA ity o f [facility] 2021-05-29 2021-05-29 Routine Cecilia [facility] 1.2.840.114 [id number] Univers 08:00:00 08:38:48 Roshunda R WELL SITE DRILLING ENGINEER 350.1.13.10 ity of Visit REGIONAL 4.2.7.2.686 Braulio as MATERNAL [phone] [facility] ical & CHILD [address] [place] [address] 2021-05-29 2021-05-29 Outpatient R BROOKS, [facility] [id number] Univers 08:00:00 08:38:48 PERI moss o f [facility] 2021-05-29 2021-05-29 Outpatient R CECILIA [facility] [id number] Univers 08:00:00 08:00:00 PERI moss o f [facility] 2021-05-22 2021-05-22 Outpatient R CECILIA [facility] [id number] Univers 10:00:00 10:47:59 SHANIANDA isa o f [facility] 2021-05-22 2021-05-22 Routine [facility] 1.2.840.114 [id number] Univers 10:00:00 10:47:59 Peri Shelly WELL SITE DRILLING ENGINEER 350.1.13.10 ity of Visit REGIONAL 4.2.7.2.686 Braulio as MATERNAL [phone] Med ical & CHILD [address] [place] [address] 2021-05-22 2021-05-22 Abstract Cecilia [facility] 1.2.840.114 [id number] Univers 00:00:00 00:00:00 Hyacinthdino Bravo WELL SITE DRILLING ENGINEER 350.1.13.10 ity of REGIONAL 4.2.7.2.686 Braulio as MATERNAL [id number] [facility] ical & CHILD [address] [place] [address] 2021-05-17 2021-05-17 Premix Concrete Batcher [facility]tras[facility] 1.2 .840.114 [id number] Univers 10:30:00 11:00:00 Visit Mitch Mobley WELL SITE DRILLING ENGINEER 350.1.13.10 ity of REGIONAL 4.2.7.2.686 Braulio as MATERNAL [id number] [facility] ical & CHILD [address] [facility] 2021-05-17 2021-05-17 Outpatient P MITCH MOBLEY [facility] [id number] Univers 10:30:00 10:30:00 MITCH MOBLEY itmaricruz [facility] 2021-05-06 2021-05-06 [facility] [id number] Univers 12:45:00 13:20:02 ROSHUNDA isa o f [facility] 2021-05-06 2021-05-06 Routine [facility] 1.2.840.114 [id number] Univers 12:45:00 13:20:02 Rosseferinonda R WELL SITE DRILLING ENGINEER 350.1.13.10 ity of Visit REGIONAL 4.2.7.2.686 Braulio as MATERNAL [phone] [facility] & CHILD [address] [place] [address] 2021-04-22 2021-04-22 [facility] [id number] Univers 10:45:00 11:50:36 PERI moss o f [facility] 2021-04-22 2021-04-22 Routine [facility] 1.2.840.114 [id number] Univers 10:45:00 11:50:36 Shanianda R WELL SITE DRILLING ENGINEER 350.1.13.10 ity of Visit REGIONAL 4.2.7.2.686 Braulio as MATERNAL [id number] [facility] & [address] 2021-04-22 2021-04-22 [facility] [id number] Univers 10:45:00 10:45:00 MIKEA isa o [facility] 2021-04-11 2021-04-11 Outpatient [facility] [id number] Univers 16:40:00 17:46:38 [facility] 2021-04-11 2021-04-11 Urgent Raj Lora [facility] 1.2.840.114 [id number] Univers 16:46:17 17:06:17 [facility] 350.1.13.10 ity [facility] 4.2.7.2.686 Braulio as DON?BLEA [phone] [address] MEDICAL OFFICE BUILDING 2021-04-11 2021-04-11 Telephone [facility] [id number] Univers 00:00:00 00:00:00 Roshunda R WELL SITE DRILLING ENGINEER 350.1.13.10 ity of REGIONAL 4.2.7.2.686 Braulio as MATERNAL [phone] Med ical & CHILD [address] [facility] 2021-04-08 2021-04-08 Outpatient N DARINEL [facility] [id number] Univers 11:00:00 11:43:41 JAKE [facility] 2021-04-08 2021-04-08 Routine [facility] [id number] Univers 10:51:42 11:43:41 Jake Myra WELL SITE DRILLING ENGINEER 350.1.13.10 i ty of Visit REGIONAL 4.2.7.2.686 Braulio as MATERNAL [phone] Med ical & CHILD [address] [place] [address] 2021-04-08 2021-04-08 [facility] [id number] Univers 11:00:00 11:00:00 JAKE [facility] 2021-03-22 2021-03-22 Telephone Johnson [facility] 1.2.840.114 [id number] Univers 00:00:00 00:00:00 Jose Orosco WELL SITE DRILLING ENGINEER 350.1.13.10 ity of [facility] 4.2.7.2.686 Braulio as MATERNAL [id number] [facility] ical & CHILD [address] [place] [address] 2021-03-21 2021-03-21 Premix Concrete Batcher Ultrasound, Rakel [facility] 1.2 .840.114 [id number] Univers 09:54:14 10:39:14 Visit Rahat Mireles WELL SITE DRILLING ENGINEER 350.1. 13.10 ity of [facility] 4.2.7.2.686 Braulio as MATERNAL [id number] [facility] ical & CHILD [address] [facility] 2021-03-21 2021-03-21 Outpatient P [facility] [id number] Univers 10:00:00 10:00:00 [facility] 2021-03-21 2021-03-21 Outpatient P [facility]I [facility] [id number] Univers 10:00:00 10:00:00 RAHAT [facility] 2021-03-19 2021-03-19 Telephone [facility] 1.2.840.114 [id number] Univers 00:00:00 00:00:00 Jake Renteria WELL SITE DRILLING ENGINEER 350.1.13.10 it y of REGIONAL 4.2.7.2.686 Braulio as MATERNAL [phone] [facility] & CHILD [address] [place] [address] 2021-03-18 2021-03-18 [facility] [id number] Univers 09:00:00 09:00:07 JAKE moss [facility] 2021-03-18 2021-03-18 Routine [facility] 1.2.162.099 [id number] Univers 08:13:29 09:00:07 Jake Renteria WELL SITE DRILLING ENGINEER 350.1.13.10 i ty of Visit REGIONAL 4.2.7.2.686 Braulio as MATERNAL [phone] [facility] & CHILD [address] [place] [address] 2021-03-14 2021-03-14 [facility] [id number] Univers 10:00:00 10:00:00 JOSE herndon [facility] 2021-02-26 2021-02-26 Telephone Cecilia [facility] 1.2.690.320 [id number] Univers 00:00:00 00:00:00 Peri Bravo WELL SITE DRILLING ENGINEER 350.1.13.10 ity of REGIONAL 4.2.7.2.686 Braulio as MATERNAL [id number] [facility] & [address] 2021-02-13 2021-02-13 Routine Provider, Ana Ascencio [facility] 1 .2.840.114 [id number] Univers 10:59:11 11:51:16 Jose Ornelas WELL SITE DRILLING ENGINEER 350.1.13 .10 ity of Visit REGIONAL 4.2.7.2.686 Braulio as MATERNAL [id number] [facility] & CHILD [address] [place] [address] 2021-02-13 2021-02-13 Outpatient R [facility] [id number] Univers 10:45:00 10:45:00 ity of [facility] 2021-02-13 2021-02-13 Orders Doctor SANTANA 1.2.840.114 [id number] Univers 00:00:00 00:00:00 Only Unassigned, RAZ 350.1.13.10 ity of [place] [facility] 4.2.7.2.686 Braulio as [id number] [address] 2021-02-07 2021-02-07 Premix Concrete Batcher Ultrasound, Maria Elenajailene [facility] 1.2 .840.114 [id number] Univers 12:51:37 14:06:37 Visit Khoi Dong Nanda WELL SITE DRILLING ENGINEER 350.1. 13.10 ity of [facility] 4.2.7.2.686 Braulio as MATERNAL [phone] [facility] & CHILD [address] [facility] 2021-02-07 2021-02-07 Outpatient P [facility] [id number] Univers 13:00:00 13:00:00 ity of [facility] 2021-02-04 2021-02-04 [facility] [id number] Univers 15:00:00 15:00:00 SHANIANDA ity o [facility] 2021-01-16 2021-01-16 [facility] 1.2.840.114 [id number] Univers 12:51:12 13:44:12 Roshunda R WELL SITE DRILLING ENGINEER 350.1.13.10 ity of Visit [facility] 4.2.7.2.686 Braulio as MATERNAL [id number] [facility] & [address] 2021-01-16 2021-01-16 [facility] [id number] Univers 12:45:00 12:45:00 ROSHUNDA ity o f [facility] 2021-01-11 2021-01-11 Telephone [facility] [id number] Univers 00:00:00 00:00:00 Roshunda R WELL SITE DRILLING ENGINEER 350.1.13.10 ity of [facility] 4.2.7.2.686 Braulio as MATERNAL [phone] [facility] & CHILD [address] [place] [address] 2021-01-11 2021-01-11 Telephone [facility] [id number] Univers 00:00:00 00:00:00 Roshunda R WELL SITE DRILLING ENGINEER 350.1.13.10 ity of [facility] 4.2.7.2.686 Braulio as MATERNAL [phone] [facility] & CHILD [address] [place] [address] 2021-01-09 2021-01-09 [facility] 1.2.621.318 [id number] Univers 00:00:00 00:00:00 Hyacinthnda R WELL SITE DRILLING ENGINEER 350.1.13.10 ity of [facility] 4.2.7.2.686 Braulio as MATERNAL [phone] [facility] & CHILD [address] [place] [address] 2021-01-09 2021-01-09 Telephone [facility] [id number] Univers 00:00:00 00:00:00 Hyacinthnda R WELL SITE DRILLING ENGINEER 350.1.13.10 ity of [facility] 4.2.7.2.686 Braulio as MATERNAL [phone] [facility] & [address] 2021-01-04 2021-01-04 Letter ESTHER Brock 1.2.840.114 [id number] Univers 00:00:00 00:00:00 (Out) Patrica CRANDALL 350.1.13.10 it y of HOSPITAL 4.2.7.2.686 Braulio as [id number] [address] 2021-01-04 2021-01-04 ESTHER Alexandre 1.2.840.114 [id number] Univers 00:00:00 00:00:00 (Out) Patrica CRANDALL 350.1.13.10 it y of HOSPITAL 4.2.7.2.686 Braulio as [phone] [address] 2021-01-01 2021-01-01 Urgent Sakina Fallon [facility] 1.2.840.114 [id number] Univers 11:30:46 11:50:46 Raj Benson [facility] 350.1.13.10 ity [facility] 4.2.7.2.686 Braulio as Don?Blea [phone] [address] Medical Office Building 2021-01-01 2021-01-01 Outpatient R DARLENE [facility] [id number] Univers 11:40:00 11:40:00 RANIA ity of [facility] 2021-01-01 2021-01-01 Telephone [facility] 1.2.840.114 [id number] Univers 00:00:00 00:00:00 Michael C WELL SITE DRILLING ENGINEER 350.1.13.10 ity of REGIONAL 4.2.7.2.686 Braulio as MATERNAL [phone] [facility] & [address] 2021-01-01 2021-01-01 Telephone [facility] 1.2.840.114 [id number] Univers 00:00:00 00:00:00 Michael C WELL SITE DRILLING ENGINEER 350.1.13.10 ity of REGIONAL 4.2.7.2.686 Bra[place]io as MATERNAL [phone] [address] 2020-12-26 2020-12-26 Orders Doctor ESTHER 1.2.840.114 [id number] Univers 00:00:00 00:00:00 Only Unassigned, RAZ 350.1.13.10 ity of [facility] 4.2.7.2.686 Braulio as [phone] [address] 2020-12-26 2020-12-26 Orders Doctor ESTHER 1.2.840.114 [id number] Univers 00:00:00 00:00:00 Only Unassigned, RAZ 350.1.13.10 ity of [place] 4.2.7.2.686 Braulio as [phone] [address] 2020-12-19 2020-12-19 Routine [facility] 1.2.840.114 [id number] Univers 13:07:29 13:52:25 Roshunda R WELL SITE DRILLING ENGINEER 350.1.13.10 ity of Visit REGIONAL 4.2.7.2.686 Bra[place]io as MATERNAL [phone] [address] 2020-12-19 2020-12-19 Outpatient R CECILIA [facility] [id number] Univers 13:15:00 13:15:00 ROSSEFERINONDA ity o f [facility] 2020-11-26 2020-11-26 Outpatient R CECILIA [facility] [id number] Univers 17:30:00 17:30:00 SHANIANDA isa o f [facility] 2020-11-21 2020-11-21 Outpatient R CECILIA [facility] [id number] Univers 18:00:00 18:00:00 MIKEA ity o f [facility] 2020-11-21 2020-11-21 [facility] 1.2.840.114 [id number] Univers 17:22:56 17:52:20 Peri R WELL SITE DRILLING ENGINEER 350.1.13.10 ity of Visit REGIONAL 4.2.7.2.686 Braulio as MATERNAL [phone] [facility] ical & CHILD [address] [place] [address] 2020-11-20 2020-11-20 [employer]ix [employer] [facility] 1.2 .840.114 [id number] Univers 10:59:31 11:29:31 Visit Nanda Vora WELL SITE DRILLING ENGINEER 350.1. 13.10 ity of REGIONAL 4.2.7.2.686 Braulio as MATERNAL [phone] [facility] & CHILD [address] [place] [address] 2020-11-20 2020-11-20 Outpatient P [facility] [id number] Univers 11:00:00 11:00:00 ity of [facility] 2020-11-20 2020-11-20 Abstract Brooks, [facility] 1.2.840.114 [id number] Univers 00:00:00 00:00:00 Mikea R WELL SITE DRILLING ENGINEER 350.1.13.10 ity of REGIONAL 4.2.7.2.686 Braulio as MATERNAL [phone] [facility] ical & CHILD [address] [place] [address] 2020-11-20 2020-11-20 Telephone Froilan [facility] 1.2.840.114 [id number] Univers 00:00:00 00:00:00 Michael Rothman WELL SITE DRILLING ENGINEER 350.1.13.10 ity of REGIONAL 4.2.7.2.686 Braulio as MATERNAL [phone] [facility] ical & CHILD [address] [place] [address] 2020-11-01 2020-11-01 Telephone Cecilia [facility] [id number] Univers 00:00:00 00:00:00 Shanianda R WELL SITE DRILLING ENGINEER 350.1.13.10 ity of REGIONAL 4.2.7.2.686 Braulio as MATERNAL [phone] [facility] & CHILD [address] [place] [address] 2020-10-31 2020-10-31 Premix Concrete Batcher Lab, [facility] 1.2.840. 114 [id number] Univers 07:41:41 07:53:36 Visit Peri Brooks R WELL SITE DRILLING ENGINEER 350.1.13.10 ity of REGIONAL 4.2.7.2.686 Braulio as MATERNAL [phone] [facility] & [address] 2020-10-31 2020-10-31 [facility] [id number] Univers 07:45:00 07:45:00 HYACINTHHUNDA ity o f [facility] 2020-10-30 2020-10-30 [facility]phone [facility] [id number] Univers 00:00:00 00:00:00 Shanianda R WELL SITE DRILLING ENGINEER 350.1.13.10 ity of REGIONAL 4.2.7.2.686 Braulio as MATERNAL [phone] [address] 2020-10-29 2020-10-29 Initial Cecilia [facility] 1.2.840.114 [id number] Univers 09:17:10 10:23:37 Shanianda R WELL SITE DRILLING ENGINEER 350.1.13.10 ity of Visit REGIONAL 4.2.7.2.686 Braulio as MATERNAL [phone] [facility] & CHILD [address] [place] [address] 2020-10-29 2020-10-29 Outpatient R [facility] [id number] Univers 08:30:00 08:30:00 ity of [facility] 2020-10-29 2020-10-29 Outpatient R FROILAN [facility] [id number] Univers 07:45:00 07:45:00 MICHAEL ity o f [facility] 2020-10-23 2020-10-23 Orders Doctor ESTHER 1.2.840.114 [id number] Univers 00:00:00 00:00:00 Only Unassigned, RAZ 350.1.13.10 ity of [place] [facility] 4.2.7.2.686 Braulio as [phone] [address] 2020-02-06 2020-02-06 Telephone [facility] [id number] [id number] Univers 00:00:00 00:00:00 Patient WELL SITE DRILLING ENGINEER 350.1.13.10 it y of Does Not [facility] [place].7.2.[place] MATERNAL [id number] Med ical & CHILD [address] [place] [address] 2020-02-06 2020-02-06 Telephone [facility], [facility] [id number] 00:00:00 00:00:00 Patient WELL SITE DRILLING ENGINEER 350.1.13.10 Does Not [facility] 4.2.7.2.686 Have A MATERNAL [phone] & CHILD [address] [place] [address] 2020-02-02 2020-02-02 Routine [facility] 1.2.840.114 [id number] Univers 15:35:59 16:20:40 Rosseferinonda R WELL SITE DRILLING ENGINEER 350.1.13.10 ity of Visit [facility] 4.2.7.2.686 Braulio as MATERNAL [phone] Med [facility] & CHILD [address] [place] [address] 2020-02-02 2020-02-02 [facility] [id number] Univers 15:45:00 15:45:00 ROSHUNDA ity o f [facility] 2020-01-23 2020-01-23 Telephone [facility] [id number] Univers 00:00:00 00:00:00 Roshunda R WELL SITE DRILLING ENGINEER 350.1.13.10 ity of [facility] 4.2.7.2.686 Braulio as MATERNAL [phone] [facility] & CHILD [address] [place] [address] 2020-01-20 2020-01-20 Telephone [facility] [id number] Univers 00:00:00 00:00:00 Roshunda R WELL SITE DRILLING ENGINEER 350.1.13.10 ity of REGIONAL 4.2.7.2.686 Braulio as MATERNAL [phone] [facility] & CHILD [address] [place] [address] 2020-01-18 2020-01-18 Telephone Cecilia [facility] [id number] Univers 00:00:00 00:00:00 Rosseferinonda R WELL SITE DRILLING ENGINEER 350.1.13.10 ity of REGIONAL 4.2.7.2.686 Braulio as MATERNAL [phone] [facility] & CHILD [address] [place] [address] 2020-01-17 2020-01-17 Outpatient R BROOKS [facility] [id number] Univers 10:00:00 10:00:00 HYACINTHSEFERINONDA ity o f [facility] 2020-01-17 2020-01-17 Premix Con[facility]cher Lab, [facility] 1.2.840. 114 [id number] Univers 09:30:17 09:45:17 Visit Hyacinth Brooksdino R WELL SITE DRILLING ENGINEER 350.1.13.10 ity of REGIONAL 4.2.7.2.686 Braulio as MATERNAL [id number] [facility] & CHILD [address] [place] [address] 2020-01-11 2020-01-11 [facility]phone [facility] [id number] Univers 00:00:00 00:00:00 Mikea R WELL SITE DRILLING ENGINEER 350.1.13.10 ity of REGIONAL 4.2.7.2.686 Braulio as MATERNAL [phone] [facility] & CHILD [address] [place] [address] 2020-01-11 2020-01-11 Norman [facility] [id number] Univers 00:00:00 00:00:00 Shanianda R WELL SITE DRILLING ENGINEER 350.1.13.10 ity of REGIONAL 4.2.7.2.686 Braulio as MATERNAL [id number] [facility] & CHILD [address] [place] [address] 2020-01-10 2020-01-10 Premix [employer] [facility] [facility], [facility] 1.2.840. 114 [id number] Univers 07:45:43 08:00:43 Visit Hyacinth Brooksdino R WELL SITE DRILLING ENGINEER 350.1.13.10 ity of REGIONAL 4.2.7.2.686 Braulio as MATERNAL [phone] [facility] ical & CHILD [address] [facility] 2020-01-10 2020-01-10 Outpatient R [facility] [id number] Univers 07:45:00 07:45:00 ity of [facility] 2020-01-05 2020-01-05 Initial Cecilia [facility] 1.2.840.114 [id number] Univers 09:05:38 10:31:43 Peri Bravo WELL SITE DRILLING ENGINEER 350.1.13.10 ity of Visit [facility] 4.2.7.2.686 Braulio as MATERNAL [phone] [facility] ical & CHILD [address] [facility] 2020-01-05 2020-01-05 [facility] [id number] Univers 09:45:00 09:45:00 PERI ity o f [facility] 2020-01-05 2020-01-05 Orders Doctor ESTHER 1.2.840.114 [id number] Univers 00:00:00 00:00:00 Only Unassigned, RAZ 350.1.13.10 ity of [place] [facility] 4.2.7.2.686 Braulio as [phone] [facility] [address] 2019-12-28 2019-12-28 Emergency [facility] 1.2.840.114 [id number] Univers 15:04:00 17:11:00 Cee Pioneer 350.1.13.10 i ty of [place]7.2.686 [place] [phone] [facility] [address] Results This patient has no known results.
[2022-03-16 16:54] LABS: Urine Blood Trace-intact (Negative); Urine Glucose Negative (Negative); Urine Protein Negative (Negative); Urine Specific Gravity >=1.030 (1.005-1.030)
[2022-03-16] MEDS ORDERED: MORPHINE 2 MG/ML SYR ONE (16:54)
[2022-03-16] MEDS ORDERED: ONDANSETRON 4 MG/2 ML VIAL ONE (16:54)
[2022-03-16 17:14] LABS: Absolute Lymphocytes (CBC) 2.4 K/uL (0.7-4.9); Lymphocytes % 22.9 % (15.3-44.8); MCV 81.1 fL (80-100); RBC Red Blood Cell Count 4.32 M/uL (3.86-4.86)
--- NOTE | 2022-03-16 17:29 | RAD REPORT ---
EXAM DESCRIPTION: CTAbdomen Pelvis Wo Contrast - 03/16/2022 5:11 pm CLINICAL HISTORY: Flank pain COMPARISON: Abdomen Pelvis W Contrast dated 12/09/2016; CTSTONE PROTOCOL dated 06/24/2015; CT ABD PEL VIS W CONTRAST dated 01/03/2007 TECHNIQUE: CT of the abdomen and pelvis was performed. All CT scans are performed using dose optimization technique as appropriate and may include automated exposure control or mA/KV adjustment according to patient size. FINDINGS: Lower chest: No acute abnormality. Liver: No acute abnormality or suspicious lesions. Biliary: No biliary ductal dilatation. Stomach: No significant focal abnormality. Duodenum: No significant focal abnormality. Pancreas: No significant abnormality. Spleen: No significant abnormality. Adrenal: No suspicious lesions. Kidney/ureter: No hydronephrosis. No renal calculi. Retroperitoneum: No retroperitoneal adenopathy. Vascular: No aneurysm. Bowel: No significant focal abnormality. Peritoneum: No ascites or free air. Bladder: Grossly unremarkable. Reproductive: Large cystic pelvic containing macroscopic fat. The lesion measures 15.2 by 11.8 cm. Bones: No acute fracture. Other: n/a IMPRESSION: Large cystic and solid pelvic mass consistent with an ovarian dermoid. Recommend gynecol ogy consultation or referral.
[2022-03-16 17:41] LABS: Albumin 3.2 g/dL (3.4-5.0); Bilirubin Total 0.3 mg/dL (0.2-1.0); Potassium 3.9 mmol/L (3.5-5.1); Protein, Total 7.3 g/dL (6.4-8.2)
--- NOTE | 2022-03-16 18:16 | EDPHYS ---
Physician Documentation [facility] Name: Daria Mario Age: 22 yrs Sex: Female : 2000 Arrival Date: 03/16/2022 Time: 16:07 Bed 8 Private MD: ED Physician Iam Cotter HPI: 03/16 17:53 This 22 yrs old Female presents to ER via Ambulatory with complaints of jl9 Abdominal Pain, Back Pain. 17:53 The patient presents with abdominal pain in the left lower quadrant. Onset: The jl9 symptoms/episode began/occurred yesterday. The symptoms radiate to left back. Associated signs and symptoms: none. The symptoms are described as crampy, dull. Modifying factors: The symptoms are alleviated by nothing, the symptoms are aggravated by. Severity of pain: in the emergency department the pain is a 4 / 10. 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 - Social history:: Smoking status: Reported history of juuling and/or vaping. ROS: 17:53 Constitutional: Negative for fever, chills, and weight loss, Eyes: Negative for injury, jl9 pain, redness, and discharge, ENT: Negative for injury, pain, and discharge, Neck: Negative for injury, pain, and swelling, Cardiovascular: Negative for chest pain, palpitations, and edema, Respiratory: Negative for shortness of breath, cough, wheezing, and pleuritic chest pain. 17:53 : Negative for injury, bleeding, discharge, and swelling, MS/Extremity: Negative for injury and deformity, Skin: Negative for injury, rash, and discoloration, Neuro: Negative for headache, weakness, numbness, tingling, and seizure, Psych: Negative for depression, anxiety, suicide ideation, homicidal ideation, and hallucinations, Allergy/Immunology: Negative for hives, rash, and allergies, Endocrine: Negative for neck swelling, polydipsia, polyuria, polyphagia, and marked weight changes, Hematologic/Lymphatic: Negative for swollen nodes, abnormal bleeding, and unusual bruising. 17:53 Abdomen/GI: Positive for abdominal pain, nausea. 17:53 Back: Positive for flank pain, on the left. Exam: 17:54 Constitutional: This is a well developed, well nourished patient who is awake, alert, jl9 and in no acute distress. Head/Face: Normocephalic, atraumatic. Eyes: Pupils equal round and reactive to light, extra-ocular motions intact. Lids and lashes normal. Conjunctiva and sclera are non-icteric and not injected. Cornea within normal limits. Periorbital areas with no swelling, redness, or edema. ENT: Mucous membranes moist. Neck: Trachea midline, no thyromegaly or masses palpated, and no cervical lymphadenopathy. Supple, full range of motion without nuchal rigidity, or vertebral point tenderness. No Meningismus. Chest/axilla: Normal chest wall appearance and motion. Nontender with no deformity. No lesions are appreciated. Cardiovascular: Regular rate and rhythm with a normal S1 and S2. No gallops, murmurs, or rubs. Normal PMI, no JVD. No pulse deficits. Respiratory: Lungs have equal breath sounds bilaterally, clear to auscultation and percussion. No rales, rhonchi or wheezes noted. No increased work of breathing, no retractions or nasal flaring. 17:54 Back: No spinal tenderness. No costovertebral tenderness. Full range of motion. Skin: Warm, dry with normal turgor. Normal color with no rashes, no lesions, and no evidence of cellulitis. MS/ Extremity: Pulses equal, no cyanosis. Neurovascular intact. Full, normal range of motion. Neuro: Awake and alert, GCS 15, oriented to person, place, time, and situation. Cranial nerves II-XII grossly intact. Motor strength 5/5 in all extremities. Sensory grossly intact. Cerebellar exam normal. Normal gait. Psych: Awake, alert, with orientation to person, place and time. Behavior, mood, and affect are within normal limits. 17:54 Abdomen/GI: Inspection: abdomen appears normal, Bowel sounds: normal, Palpation: mild abdominal tenderness, in the left lower quadrant. Vital Signs: 16:20 BP 134 / 74; Pulse 75; Resp 16; Temp 98.4(O); Pulse Ox 100% on R/A; Weight 104.33 kg; vg1 Height 5 ft. 2 in. (157.48 cm); Pain 8/10; 18:24 BP 134 / 74; Pulse 75; Resp 16; Pain 2/10; ll1 16:20 Body Mass Index 42.07 (104.33 kg, 157.48 cm) vg1 MDM: 16:[address] [facility] 17:54 Differential diagnosis: appendicitis, bowel obstruction, Ectopic . Data 9 reviewed: vital signs, nurses notes. Counseling: I had a detailed discussion with the patient and/or guardian regarding: the historical points, exam findings, and any diagnostic results supporting the discharge/admit diagnosis, lab results, radiology results, the need for outpatient follow up, an OB/Gyne specialist, to return to the emergency department if symptoms worsen or persist or if there are any questions or concerns that arise at home. 18:15 Response to treatment: the patient's symptoms have markedly improved after treatment. [facility] 03/16 16:44 Order name: CBC with Diff; Complete Time: 17:30 [facility] 03/16 16:44 Order name: CMP; Complete Time: 17:52 [facility] 03/16 16:44 Order name: Lipase; Complete Time: 17:52 [facility] 03/16 16:44 Order name: CT Abd/Pelvis - Without Contrast; Complete Time: 17:30 [facility] 03/16 16:54 Order name: Urine Dipstick-Ancillary; Complete Time: 17:30 [facility] 03/16 16:56 Order name: Urine --Ancillary (enter results); Complete Time: 17:52 03/16 16:24 Order name: Urine Dipstick-Ancillary (obtain specimen); Complete Time: 16:59 [facility] 03/16 16:24 Order name: Urine Test (obtain specimen); Complete Time: 16:59 [facility] 03/16 16:44 Order name: IV Saline Lock; Complete Time: 16:47 [facility] 03/16 16:44 Order name: Labs collected and sent; Complete Time: 16:47 [facility] Administered Medications: 17:04 Drug: Zofran (Ondansetron) 4 mg Route: IVP; Site: right antecubital; 1 18:08 Follow up: Response: No adverse reaction 1 17:04 Drug: morphine 2 mg {Note: rass 0, pain 8/10.} Route: IVP; Infused Over: 4 mins; Site: ll1 right antecubital; 18:08 Follow up: Response: No adverse reaction ll1 18:13 Drug: [place] (HYDROcodone-acetaminophen) (7.5 mg-325 mg) 1 tabs {Note: rass 0, pain ll1 2/10.} Route: PO; 18:25 Follow up: Response: No adverse reaction; Pain is decreased; RASS: Alert and Calm (0) ll1 Disposition Summary: 03/16/22 18:15 Discharge Ordered Location: Home jl9 Condition: Stable jl9 Diagnosis - Other ovarian cysts jl9 Followup: jl9 - With: Private Physician - When: 1 - 2 days - Reason: Recheck today's complaints, Continuance of care, Re-evaluation by your physician Discharge Instructions: - Discharge Summary Sheet jl9 - Ovarian Cyst, Dsbd-uo-Sacf jl9 Forms: - Medication Reconciliation Form jl9 - Work release form ll1 - Thank You Letter jl9 - Antibiotic Education jl9 - Prescription Opioid Use jl9 Prescriptions: - Tramadol 50 mg Oral Tablet - take 1 tablet by ORAL route every 8 hours as needed; 12 tablet; Refills: 0, jl9 Product Selection Permitted - ondansetron 8 mg Oral tablet,disintegrating - take 1 tablet by ORAL route every 8 hours As needed; 20 tablet; Refills: 0, jl9 Product Selection Permitted Addendum: 03/20/2022 09:36 Co-signature as Attending Physician, Iam Cotter MD I agree with the assessment and c manuel plan of care. Signatures: Dispatcher [employer] Iam Petersen MD MD cha Leal, Jahala RN RN jl7 Luzmaria Mayes RN RN [email or web address] Aidee Perez RN RN ll1 Artemio Coreas jl9 Corrections: (The following items were deleted from the chart) 03/16 16:26 16:26 PMHx: probable asthma; martha jl7
--- NOTE | 2022-03-16 18:16 | ER ---
Nurse's Notes [facility] Name: Daria Mario Age: 22 yrs Sex: Female : 2000 Arrival Date: 03/16/2022 Time: 16:07 Bed 8 Private MD: Diagnosis: Other ovarian cysts Presentation: 03/16 16:20 Chief complaint: Patient states: LLQ pain that radiates to left side of back that began vg1 on 03/13/22, states nausea. Denies any s/s or urine. Coronavirus screen: Vaccine status: Patient reports being unvaccinated. Client denies travel out of the [place] in the last 14 days. Ebola Screen: Patient negative for fever greater than or equal to 101.5 degrees Fahrenheit, and additional compatible Ebola Virus Disease symptoms Patient denies exposure to infectious person. Initial Sepsis Screen: Does the patient meet any 2 criteria? No. Patient's initial sepsis screen is negative. Does the patient have a suspected source of infection? No. Patient's initial sepsis screen is negative. Risk Assessment: Do you want to hurt yourself or someone else? Patient reports no desire to harm self or others. Onset of symptoms was March 13, 2022. 16:20 Method Of Arrival: Ambulatory vg1 16:20 Acuity: ISABELL 3 vg1 Triage Assessment: 16:21 General: Appears in no apparent distress. uncomfortable, Behavior is calm, cooperative. vg1 Pain: Complains of pain in posterior aspect of left lateral abdomen and left lower quadrant Pain currently is 8 out of 10 on a pain scale. Pain began 2-3 days ago. GI: Abdomen is round non-distended, Last BM was March 16, 2022. Reports nausea. : Denies burning with urination, pain with urination urinary frequency. 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 - Social history:: Smoking status: Reported history of juuling and/or vaping. Screenin:05 Abuse screen: Denies threats or abuse. Nutritional screening: No deficits noted. ll1 Tuberculosis screening: No symptoms or risk factors identified. Fall Risk IV access (20 points). Total Sommer Fall Scale indicates No Risk (0-24 pts). Assessment: 17:05 Reassessment: No changes from previously documented assessment. Patient and/or family ll1 updated on plan of care and expected duration. Pain level reassessed. Patient is alert, oriented x 3, equal unlabored respirations, skin warm/dry/pink. 18:05 Reassessment: No changes from previously documented assessment. Patient and/or family ll1 updated on plan of care and expected duration. Pain level reassessed. Patient is alert, oriented x 3, equal unlabored respirations, skin warm/dry/pink. Patient states feeling better. Vital Signs: 16:20 BP 134 / 74; Pulse 75; Resp 16; Temp 98.4(O); Pulse Ox 100% on R/A; Weight 104.33 kg; vg1 Height 5 ft. 2 in. (157.48 cm); Pain 8/10; 18:24 BP 134 / 74; Pulse 75; Resp 16; Pain 2/10; ll1 16:20 Body Mass Index 42.07 (104.33 kg, 157.48 cm) vg1 ED Course: 16:07 Patient arrived in ED. as 16:09 [facility] 16:09 Iam Cotter MD is Attending Physician. jl9 16:21 Triage completed. vg1 16:21 Arm band placed on. vg1 16:24 Aidee Perez, RN is Primary Nurse. ll1 16:24 Patient placed in an exam room, on a stretcher. ll1 17:05 Patient has correct armband on for positive identification. Bed in low position. Call ll1 light in reach. Side rails up X2. Client placed on continuous cardiac and pulse oximetry monitoring. NIBP monitoring applied. 17:05 No provider procedures requiring assistance completed. Inserted saline lock: 22 gauge ll1 in right antecubital area, using aseptic technique. Blood collected. 17:13 CT Abd/Pelvis - Without Contrast In Process Unspecified. EDMS 18:24 IV discontinued, intact, bleeding controlled, No redness/swelling at site. Pressure ll1 dressing applied. Administered Medications: 17:04 Drug: Zofran (Ondansetron) 4 mg Route: IVP; Site: right antecubital; 1 18:08 Follow up: Response: No adverse reaction 1 17:04 Drug: morphine 2 mg {Note: rass 0, pain 8/10.} Route: IVP; Infused Over: 4 mins; Site: ll1 right antecubital; 18:08 Follow up: Response: No adverse reaction 1 18:13 Drug: [place] (HYDROcodone-acetaminophen) (7.5 mg-325 mg) 1 tabs {Note: rass 0, pain ll1 2/10.} Route: PO; 18:25 Follow up: Response: No adverse reaction; Pain is decreased; RASS: Alert and Calm (0) 1 Medication: 17:05 VIS not applicable for this client. 1 Outcome: 18:15 Discharge ordered by MD. dozier 18:25 Patient left the ED. 1 Signatures: Dispatcher [employer] EDCathy Pérez Jahala, RN RN jl7 Luzmaria Mayes RN RN vg1 Lewis, Lynsay, RN RN [email or web address] Artemio Coreas Corrections: (The following items were deleted from the chart) 16:26 16:26 PMHx: probable asthma; martha thomas
[2022-03-16 18:39] VITALS: BP 134/74; TEMP 98.4; O2SAT 100
== END 2022-03-16 18:25 | disposition home or self-care (01) ==
LOC: ER 16:04
DX: N83.299 Other ovarian cyst, unspecified side (principal)
CPT/HCPCS: 85025; 36415; 81025; 81003; 83690; 80053; 74176; 96375; 96374; 99284; J2270; J2405

== ENCOUNTER 2022-03-31 11:19 | Emergency (ER) | payer OTHER ==
--- OUTSIDE RECORDS SUMMARY | 2022-03-31 11:24 | XMS REPORT | Continuity of Care Document ---
:2000 Author Organization [facility] t Address [facility] [place] [address] Care Team Providers Name Role Phone Michelle Patel CNM Primary Care Physician [phone] MICHELLE PATEL Attending Clinician Unavailable Provider, Ana Temp Attending Clinician Unavailable Michelle Patel CNM Attending Clinician Doctor Unassigned, [place] Attending Clinician Unavailable Ann-Marie Avelar Attending Clinician Lab, Darrell Arellano Attending Clinician Unavailable ANN-MARIE OBRIEN Attending Clinician Unavailable NASRIN BUNN Attending Clinician Unavailable Julia Barnett Attending Clinician Nasrin Bunn MD Attending Clinician Provider, Darrell Arellano [facility] Attending Clinician Unavailable PERI BROOKS Attending Clinician Unavailable Peri Ernst Attending Clinician DG CARTER Attending Clinician Unavailable Dg Carter MD Attending Clinician Montez BONDS, Brady Attending Clinician Dell Vicente MD Attending Clinician Natalie Yeh RN Attending Clinician Unavailable Vishal Ball RN, Joana Attending Clinician Unavailable MICHAEL MCGOVERN Attending Clinician Unavailable Lab, Ang-Rmchp Attending Clinician Unavailable [facility] Michael Rothman Attending Clinician [phone] Ultrasound, Rakel Attending Clinician Unavailable Mitch Mobley MD Attending Clinician MITCH MOBLEY Attending Clinician Unavailable MITCH MOBLEY Attending Clinician Unavailable SAKINA FALLON Attending Clinician Unavailable Guido MARLOW, Raj Attending Clinician Sakina Farnsworth Attending Clinician JAKE TENA Attending Clinician Unavailable Jake Persaud Attending Clinician Johnson Jose PURDY Attending Clinician Rahat Mireles MD Attending Clinician [phone] RAHAT MIRELES Attending Clinician Unavailable JOSE ORNELAS Attending Clinician Unavailable Khoi Dong MD, Nanda Attending Clinician [phone] Vinod COLES, Patrica Mcgill Attending Clinician Unavailable RAJ LORA Attending Clinician Unavailable Pcp, Patient Does Not Have A Attending Clinician [phone] Cee Ku Attending Clinician DG CARTER Admitting Clinician Unavailable Dg Carter MD Admitting Clinician Payers Payer Name Policy Type Policy Number Effective Date Expiration Date Farhat gonzalez [facility] [id number] 2020 00:00:00 MEDICAID [place] PENDING 2019 PENDING 00:00:00 Problems Condition Condition Condition Status Onset Resolution Last Treating Co mments Source Name Details Category Date Date Treatment Clinician Date Encounter Encounter Disease Active Uni vers for other for other 3-22 ity of general general 00:00: [place] counseling counseling 00 Me dical or advice or advice Bran ch on on contracept contracept ion ion 37 weeks 37 weeks Disease Active Unive rs gestation gestation 2-01 ity of of of 00:00: [place] 00 [facility] Branch Anemia of Anemia of Disease Active Uni vers mother in mother in 1-19 [place]y of , , [place] antepartum antepartum 00 Me dical Branch Adnexal Adnexal Disease Active Univers mass mass 1-19 ity of 00:00: [place] 00 [facility] Obesity Obesity Disease Active Univers affecting affecting 1-19 [place] second 00 [facility] trimester trimester Bran ch Glucose Glucose Disease Active 2020-05 Univers tolerance tolerance 1-15 ity of test test 00:00: [place] abnormal abnormal 00 Medica l Branch Morbid Morbid Disease Active Univers obesity obesity 6-28 ity of 00:00: [place] 00 [facility] History of History of Disease Active U nivers miscarriag miscarriag 6-28 it y of e, e, 00:00: [place] currently currently 00 Medi maya , , Bran ch first first trimester trimester BMI BMI Disease Active Univers 45.0-49.9, 45.0-49.9, 6-28 it y of adult adult 00:00: [place] 00 [facility] Supervisio Supervisio Disease Active 2020-0 U nivers n of high n of high 9- ity of risk risk 00:00: [place] 00 Medi [facility] in third in third Branch trimester trimester Primigravi Primigravi Disease Active 2020-0 U nivers da in da in 9-03 ity of third third 00:00: [place] trimester trimester 00 [facility] Branch Urinary Urinary Disease Active 2020-0 Univers tract tract 9- ity of infection infection 00:[place] mother in mother 00 [facility] during during Branch first first trimester trimester of of Allergies, Adverse Reactions, Alerts Allergy Allergy Status Severity Reaction(s) Onset Inactive Treating Comm ents Source Name Type Date Date Clinician NO KNOWN Drug Active Univers ALLERGIE Class ity of S [facility] Social History Social Habit Start Date Stop Date Quantity Comments Source Exposure to 2022-03-10 2022-03-20 Not sure [facility] SARS-CoV-2 00:00:00 14:54:00 [facility] (event) Branch Alcohol intake 2022-03-20 2022-03-20 Ex-drinker [facility] 00:00:00 00:00:00 (finding) [facility] Tobacco use and 2021-11-18 2021-11-18 Smokeless tobacco Un iversity of exposure 00:00:00 00:00:00 non-user [facility] Sex Assigned At [birth year] Universit y of 00:00:00 00:00:00 [facility] Smoking Status Start Date Stop Date Source Never smoked tobacco [facility] Medications Ordered Filled Start Stop Current Ordering Indication Dosage Frequency Signature Comments Components Source Medication Medication Date Date Medication? Clinician (SIG) Name Name No known 2021-05 No No known Unive rs medications 1-17 medication it y of 15:01: s [address] No known 2021-05 No No known Unive rs medications 1-17 medication it y of 15:01: s [address] No known No No known Unive rs medications 7-19 medication it y of 14:32: s [address] No known No No known Unive rs medications 7-19 medication it y of 14:32: s [address] Immunizations Ordered Filled Immunization Date Status Comments Sourc e Immunization Name Name TD 2021-04-08 Completed University of 00:00:00 [facility] TDAP 2021-04-08 Completed University of 00:00:00 [facility] TDAP 2021-04-08 Completed University 00:00:00 [facility] TDAP 2021-04-08 Completed University of 00:00:00 [facility] Influenza Virus 2021-03-18 Completed Universit y of Vaccine Quad IM, 00:00:00 [facility] dical Preserv and ABX Branch Free 6 MO-64 YRS Influenza Virus 2021-03-18 Completed Universit y of Vaccine Quad IM, 00:00:00 [place] Me dical Preserv and ABX Branch Free 6 MO-64 YRS Influenza Virus 2021-03-18 Completed Universit y of Vaccine Quad IM, 00:00:00 [place] Me dical Preserv and ABX Branch Free 6 MO-64 YRS Influenza Virus 2021-03-18 Completed Universit y of Vaccine Quad IM, 00:00:00 [facility] dical Preserv and ABX Branch Free 6 MO-64 YRS HPV 2010-11-26 Completed University 00:00:00 [facility] Vital Signs Vital Name Observation Time Observation Value Comments Source Systolic blood 2022-03-20 20:54:00 98 mm[Hg] Univer sity of pressure [facility] Diastolic blood 2022-03-20 20:54:00 51 mm[Hg] Unive rsity of pressure [facility] Heart rate 2022-03-20 20:54:00 74 /min [facility] Body temperature 2022-03-20 20:54:00 36.56 [facility]lyssa [facility] Respiratory rate 2022-03-20 20:54:00 18 /min [facility] Body height 2022-03-20 20:54:00 157.5 cm [facility] Body weight 2022-03-20 20:54:00 116.756 kg [facility] BMI 2022-03-20 20:54:00 47.08 kg/m2 [facility] Procedures Procedure Date / Time Performed Performing Clinician [facility] e ASSIGNMENT OF BENEFITS 2022-03-20 20:19:34 Doctor Unassigned, No [facility] Encounters Start End Encounter Admission Attending Care Care Encounter Source Date/Time Date/Time Type Type Clinicians Facility Department ID 2021-03-[address] [facility] [id number] Univers 14:32:39 ity [facility] 2022-03-20 2022-03-[address] [facility] [id number] Univers 14:15:00 15:22:45 MICHELLE ity [facility] 2022-03-20 2022-03-20 Office [facility] .2.840.114 [id number] Univers 14:15:00 15:22:45 Visit Michelle Patel DIGITAL ASSET COORDINATOR 350.1.13.1 0 ity of [facility] 4.2.7.2.686 Braulio as MATERNAL [id number] Med ical & CHILD [address] [place] [address] 2022-03-20 2022-03-20 Orders Doctor ESTHER 1.2.840.114 [id number] Univers 00:00:00 00:00:00 Only Unassigned, RAZ 350.1.13.10 ity of [place] [facility] 4.2.7.2.686 Braulio as [phone] [address] 2021-11-25 2021-11-25 Patient Doctor [facility] 1.2.840.114 [id number] Univers 00:00:00 00:00:00 Secure Msg Unassigned, HEALTH 350.1.13.10 ity of [place] RODRIGO 4.2.7.2.686 Braulio as DON?BLEA [phone] [address] OFFICE [facility] 2021-11-22 2021-11-22 Telephone Micah [facility] [id number] Univers 00:00:00 00:00:00 Ann-Marie HEALTH 350.1.13.10 it y of [place] 4.2.7.2.686 Braulio as DON?BLEA [phone] [address] 2021-11-20 2021-11-20 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 [facility] 4.2.7.2.686 Braulio as DON?BLEA [phone] [facility] 353 [facility] 2021-11-20 2021-11-[address] [facility] [id number] Univers 14:30:00 14:30:00 ANN-MARIE maricruz [facility] 2021-11-20 2021-11-[address] [facility] [id number] Univers 14:30:00 14:30:00 ANN-MARIE [facility] 2021-11-19 2021-11-19 [facility] [id number] Univers 14:00:00 14:29:58 ANN-MARIE [facility] 2021-11-19 2021-11-19 [facility] 1.2.840.114 [id number] Univers 14:00:00 14:29:58 Visit [facility] 350.1.13.[address] it [address] [facility] [facility] 4.2.7.2.686 Braulio as DON?BLEA [phone] [address] OFFICE [facility] 2021-11-18 2021-11-[address] [facility] [id number] Univers 18:40:00 19:08:20 NASRIN ity of [facility] 2021-11-18 2021-11-18 Urgent Julia Vázquez [facility] 1.2.840. 114 [id number] Univers 18:40:00 19:08:20 Care Oni [facility] 350.1.13.10 ity of [place] 4.2.7.2.686 Braulio as DON?BLEA [id number] [address] MEDICAL OFFICE [facility] 2021-11-18 2021-11-18 Letter [facility] [id number] Univers 00:00:00 00:00:00 (Out) Ang HEALTH 350.1.13.10 it y of Urgent Care [place] 4.2.7.2.686 [place] DON?BLEA [phone] [address] MEDICAL OFFICE [facility] 2021-07-23 2021-07-23 [facility] [id number] Univers 13:30:00 14:22:06 ROSHUNDA ity o f [facility] 2021-07-23 2021-07-23 Office [facility] 1.2.840.114 [id number] Univers 13:30:00 14:22:06 Visit Roshunda R DIGITAL ASSET COORDINATOR 350.1.13.10 ity of REGIONAL 4.2.7.2.686 Braulio as MATERNAL [phone] [facility] [address] [place] [address] 2021-06-26 2021-06-26 [facility] [id number] Univers 11:00:00 11:33:56 ROSHUNDA ity o f [facility] 2021-06-26 2021-06-26 Routine [facility] 1.2.840.114 [id number] Univers 11:00:00 11:33:56 Roshunda R DIGITAL ASSET COORDINATOR 350.1.13.10 ity of Visit REGIONAL 4.2.7.2.686 Braulio as MATERNAL [id number] [facility] [address] [place] [address] 2021-06-24 2021-06-24 Orders Doctor ESTHER 1.2.840.114 [id number] Univers 00:00:00 00:00:00 Only UnassignedRAZ 350.1.13.10 ity of [place] [facility] 4.2.7.2.686 Braulio as [id number] [facility] 009 Branch 2021-06-04 2021-06-06 Inpatient P EMMA [facility] MICHAEL [id number] Univers 12:40:00 20:07:00 DG ity of [facility] 2021-06-04 2021-06-06 Hospital ESTHER Carter 1.2.840.114 [id number] Univers 12:40:00 20:07:00 Encounter Dg Salcedo RAZ 350.1.13.10 ity of [facility] 4.2.7.2.686 Braulio as [id number] [facility] 133 Branch 2021-06-05 2021-06-05 Anesthesia Brady Herrmann 1.2.84 0.114 [id number] Univers 08:10:00 18:07:00 Event Dell Vicente 350.1.13.10 ity of [facility] 4.2.7.2.686 Braulio as [phone] [facility] 132 Branch 2021-06-05 2021-06-[address] [facility] [id number] Univers 09:15:00 09:15:00 PERI moss o f [facility] 2021-06-04 2021-06-04 Nurse ESTHER Yeh 1.2.840.114 [id number] Univers 00:00:00 00:00:00 Triage Natalie CRANDALL 350.1.13.10 it y of [facility] 4.2.7.2.686 Braulio as [id number] [facility] 019 Branch 2021-06-04 2021-06-04 Telephone Cecilia [facility] 1.2.772.448 [id number] Univers 00:00:00 00:00:00 Peri Bravo DIGITAL ASSET COORDINATOR 350.1.13.10 ity of [facility] 4.2.7.2.686 Braulio as MATERNAL [phone] Med ical & CHILD 107 [facility] 2021-06-01 2021-06-01 Nurse Vishal SANTANA 1.2.840.114 [id number] Univers 00:00:00 00:00:00 Triage RAZ Ball 350.1.13.10 ity [facility] 4.2.7.2.686 Braulio as [phone] [address] 2021-06-01 2021-06-01 Telephone [facility] [id number] [id number] Univers 00:00:00 00:00:00 Mikea R DIGITAL ASSET COORDINATOR 350.1.13.10 ity of [facility] 4.2.7.2.686 Braulio as MATERNAL [id number] [facility] [address] [place] [address] 2021-06-01 2021-06-01 Telephone Vishal SANTANA 1.2.170.175 [id number] Univers 00:00:00 00:00:00 RAZ Ball 350.1.13.10 ity [facility] 4.2.7.2.686 Braulio as [id number] [address] 2021-05-31 2021-05-[address] 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 114 [id number] Univers 13:30:00 13:30:00 Visit Michael Mcgovern DIGITAL ASSET COORDINATOR 350.1.13. 10 ity of [facility] 4.2.7.2.686 Braulio as MATERNAL [id number] [facility] ical & CHILD [address] [place] [address] 2021-05-30 2021-05-30 Telephone Cecilia [facility] [id number] Univers 00:00:00 00:00:00 Peri R DIGITAL ASSET COORDINATOR 350.1.13.10 ity of [facility] 4.2.7.2.686 Braulio as MATERNAL [id number] [facility] & CHILD [address] [place] [address] 2021-05-30 2021-05-30 Telephone [facility] 1.2.526.537 [id number] Univers 00:00:00 00:00:00 Roshunda R DIGITAL ASSET COORDINATOR 350.1.13.10 ity of REGIONAL 4.2.7.2.686 Braulio as MATERNAL [id number] [facility] [address] [place] [address] 2021-05-30 2021-05-30 [place] [facility] [id number] Univers 00:00:00 00:00:00 Roshunda R DIGITAL ASSET COORDINATOR 350.1.13.10 ity of REGIONAL 4.2.7.2.686 Braulio as MATERNAL [id number] [facility] & [address] 2021-05-29 2021-05-29 Outpatient [facility] [id number] Univers 08:00:00 08:38:48 ROSHUNDA ity o [facility] 2021-05-29 2021-05-29 Routine [facility] 1.2.840.114 [id number] Univers 08:00:00 08:38:48 Roshunda R DIGITAL ASSET COORDINATOR 350.1.13.10 ity of Visit REGIONAL 4.2.7.2.686 Braulio as MATERNAL [id number] [facility] & [address] 2021-05-29 2021-05-29 Outpatient [facility] [id number] Univers 08:00:00 08:38:48 ROSHUNDA ity o [facility] 2021-05-29 2021-05-29 Outpatient [facility] [id number] Univers 08:00:00 08:00:00 ROSHUNDA ity o [facility] 2021-05-22 2021-05-22 Outpatient [facility] [id number] Univers 10:00:00 10:47:59 ROSHUNDA ity o [facility] 2021-05-22 2021-05-22 Routine [facility] 1.2.840.114 [id number] Univers 10:00:00 10:47:59 Roshunda R DIGITAL ASSET COORDINATOR 350.1.13.10 ity of Visit REGIONAL 4.2.7.2.686 Braulio as MATERNAL [id number] [facility] & CHILD [address] [place] [address] 2021-05-22 2021-05-22 Abstract Cecilia INZEYNEP 1.2.840.114 [id number] Univers 00:00:00 00:00:00 Roshunda R DIGITAL ASSET COORDINATOR 350.1.13.10 ity of REGIONAL 4.2.7.2.686 Braulio as MATERNAL [id number] [facility] [address] [place] [address] 2021-05-17 2021-05-17 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 [id number] Univers 10:30:00 10:30:00 [facility] 2021-05-06 2021-05-[address] [facility] [id number] Univers 12:45:00 13:20:02 ROSHUNDA ity o [facility] 2021-05-06 2021-05-06 Routine Cecilia [facility] 1.2.840.114 [id number] Univers 12:45:00 13:20:02 Roshunda R DIGITAL ASSET COORDINATOR 350.1.13.10 ity of Visit REGIONAL 4.2.7.2.686 Braulio as MATERNAL [id number] [facility] & [address] 2021-04-22 2021-04-[address] [facility] [id number] Univers 10:45:00 11:50:36 ROSHUNDA ity o [facility] 2021-04-22 2021-04-22 Routine Cecilia [facility] 1.2.840.114 [id number] Univers 10:45:00 11:50:36 Roshunda R DIGITAL ASSET COORDINATOR 350.1.13.10 ity of Visit REGIONAL 4.2.7.2.686 Braulio as MATERNAL [id number] [address] 2021-04-22 2021-04-[address] [facility] [id number] Univers 10:45:00 10:45:00 ROSSEFERINONDA ity o f [facility] 2021-04-11 2021-04-11 [facility] [id number] Univers 16:40:00 17:46:38 [facility] 2021-04-11 2021-04-11 Urgent Raj Lora [facility] 1.2.840.114 [id number] Univers 16:46:17 17:06:17 [place] [facility] 350.1.13.10 ity [facility] 4.2.7.2.686 Braulio as DON?BLEA [id number] [address] MEDICAL OFFICE BUILDING 2021-04-11 2021-04-11 Telephone [facility] 1.2.563.442 [id number] Univers 00:00:00 00:00:00 Peri Bravo DIGITAL ASSET COORDINATOR 350.1.13.10 ity of REGIONAL 4.2.7.2.686 Braulio as MATERNAL [id number] [address] 2021-04-08 2021-04-[address] [facility] [id number] Univers 11:00:00 11:43:41 JAKE moss [facility] 2021-04-08 2021-04-08 Routine [facility] [id number] Univers 10:51:42 11:43:41 Jake Renteria DIGITAL ASSET COORDINATOR 350.1.13.10 i ty of Visit REGIONAL 4.2.7.2.686 Braulio as MATERNAL [id number] [address] 2021-04-08 2021-04-08 [facility] [id number] Univers 11:00:00 11:00:00 JAKE [facility] 2021-03-22 2021-03-22 Telephone [facility] 1.2.840.114 [id number] Univers 00:00:00 00:00:00 Jose Orosco DIGITAL ASSET COORDINATOR 350.1.13.10 ity of REGIONAL 4.2.7.2.686 Braulio as MATERNAL [id number] Med ical & CHILD [address] [place] [address] 2021-03-21 2021-03-21 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 13.10 ity of REGIONAL 4.2.7.2.686 Braulio as MATERNAL [id number] [facility] ical & CHILD 369 [facility] 2021-03-21 2021-03-[address] [facility] [id number] Univers 10:00:00 10:00:00 ity [facility] 2021-03-21 2021-03-[address] [facility] [id number] Univers 10:00:00 10:00:00 [facility] 2021-03-19 2021-03-19 Telephone [facility] 1.2.840.114 [id number] Univers 00:00:00 00:00:00 Jake Renteria DIGITAL ASSET COORDINATOR 350.1.13.10 it y of REGIONAL 4.2.7.2.686 Braulio as MATERNAL [id number] [facility] [address] [place] [address] 2021-03-18 2021-03-[address] [facility] [id number] Univers 09:00:00 09:00:07 JAKE moss [facility] 2021-03-18 2021-03-18 Routine [facility] [id number] Univers 08:13:29 09:00:07 Jake Renteria DIGITAL ASSET COORDINATOR 350.1.13.10 i ty of Visit REGIONAL 4.2.7.2.686 Braulio as MATERNAL [id number] Med ical & CHILD [address] [place] [address] 2021-03-14 2021-03-14 [facility] [id number] Univers 10:00:00 10:00:00 JOSE itmaricruz o f [facility] 2021-02-26 2021-02-26 Telephone Cecilia [facility] [id number] Univers 00:00:00 00:00:00 Peri Bravo DIGITAL ASSET COORDINATOR 350.1.13.10 ity of [facility] 4.2.7.2.686 Braulio as MATERNAL [id number] Med ical & CHILD [address] [place] [address] 2021-02-13 2021-02-13 Routine Provider, Ana [facility] 1 .2.840.114 [id number] Univers 10:59:11 11:51:16 Jose Ornelas DIGITAL ASSET COORDINATOR 350.1.13 .10 ity of Visit [facility] 4.2.7.2.686 Braulio as MATERNAL [id number] [facility] & CHILD [address] [place] [address] 2021-02-13 2021-02-[address] 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 13.10 ity of [facility] 4.2.7.2.686 Braulio as MATERNAL [id number] [facility] & CHILD [address] [place] [address] 2021-02-07 2021-02-[address] [facility] [id number] Univers 13:00:00 13:00:00 ity [facility] 2021-02-04 2021-02-04 [facility] [id number] Univers 15:00:00 15:00:00 SHANIANDTawanna moss o f [facility] 2021-01-16 2021-01-16 Routine [facility] 1.2.840.114 [id number] Univers 12:51:12 13:44:12 Rosseferinonda R DIGITAL ASSET COORDINATOR 350.1.13.10 ity of Visit REGIONAL 4.2.7.2.686 Braulio as MATERNAL [id number] Med ical & CHILD [address] [place] [address] 2021-01-16 2021-01-16 Outpatient R [facility] [id number] Univers 12:45:00 12:45:00 MIKETawanna moss o f [facility] 2021-01-11 2021-01-11 [facility]phone [facility] [id number] Univers 00:00:00 00:00:00 Hyacinthseferinonda R DIGITAL ASSET COORDINATOR 350.1.13.10 ity of REGIONAL 4.2.7.2.686 Braulio as MATERNAL [phone] Med ical & CHILD [address] [place] [address] 2021-01-11 2021-01-11 [place] [facility] [id number] Univers 00:00:00 00:00:00 Hyacinthseferinonda R DIGITAL ASSET COORDINATOR 350.1.13.10 ity of REGIONAL 4.2.7.2.686 Braulio as MATERNAL [phone] Med ical & CHILD [address] [place] [address] 2021-01-09 2021-01-09 [place] [facility] [id number] Univers 00:00:00 00:00:00 Shanianda R DIGITAL ASSET COORDINATOR 350.1.13.10 ity of REGIONAL 4.2.7.2.686 Braulio as MATERNAL [phone] Med ical & CHILD [address] [place] [address] 2021-01-09 2021-01-09 [place] [facility] [id number] Univers 00:00:00 00:00:00 Roshunda R DIGITAL ASSET COORDINATOR 350.1.13.10 ity of REGIONAL 4.2.7.2.686 Braulio as MATERNAL [phone] Med ical & CHILD [address] [place] [address] 2021-01-04 2021-01-04 ESTHER Alexandre 1.2.840.114 [id number] Univers 00:00:00 00:00:00 (Out) Patrica CRANDALL 350.1.13.10 it y of [facility] 4.2.7.2.686 Braulio as [phone] [address] 2021-01-04 2021-01-04 ESTHER Alexandre 1.2.840.114 [id number] Univers 00:00:00 00:00:00 (Out) Patrica CRANDALL 350.1.13.10 it y of [facility] 4.2.7.2.686 Braulio as [phone] [address] 2021-01-01 2021-01-01 Sakina Zarco [facility] 1.2.840.114 [id number] Univers 11:30:46 11:50:46 [facility].10 [facility] 4.2.7.2.686 Braulio as Don?Blea [phone] [address] Medical [facility] Building 2021-01-01 2021-01-[address] [facility] [id number] Univers 11:40:00 11:40:00 [facility] 2021-01-01 2021-01-01 Telephone [facility] 1.2.840.114 [id number] Univers 00:00:00 00:00:00 Michael Rothman DIGITAL ASSET COORDINATOR 350.1.13.10 ity of [facility] 4.2.7.2.686 Braulio as MATERNAL [phone] [facility] [address] [place] [address] 2021-01-01 2021-01-01 Telephone [facility] 1.2.840.114 [id number] Univers 00:00:00 00:00:00 Michael C DIGITAL ASSET COORDINATOR 350.1.13.10 ity of [facility] 4.2.7.2.686 Braulio as MATERNAL [phone] [facility] ical & CHILD [address] [place] [address] 2020-12-26 2020-12-26 Orders Doctor ESTHER 1.2.840.114 [id number] Univers 00:00:00 00:00:00 Only Unassigned, RAZ 350.1.13.10 ity of [place] 4.2.7.2.686 Braulio as [phone] [address] 2020-12-26 2020-12-26 Orders Doctor ESTHER 1.2.840.114 [id number] Univers 00:00:00 00:00:00 Only Unassigned, RAZ 350.1.13.10 ity of [place] 4.2.7.2.686 Braulio as [phone] [address] 2020-12-19 2020-12-19 Routine Cecilia [facility] 1.2.840.114 [id number] Univers 13:07:29 13:52:25 Roshunda R DIGITAL ASSET COORDINATOR 350.1.13.10 ity of Visit REGIONAL 4.2.7.2.686 Braulio as MATERNAL [phone] [facility] [address] [place] [address] 2020-12-19 2020-12-[address] [facility] [id number] Univers 13:15:00 13:15:00 SHANIANDA ity o [facility] 2020-11-26 2020-11-[address] [facility] [id number] Univers 17:30:00 17:30:00 [facility] 2020-11-21 2020-11-[address] 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 13.10 ity of REGIONAL 4.2.7.2.686 Braulio as MATERNAL [phone] [facility] ical & CHILD [address] [facility] 2020-11-20 2020-11-[address] [facility] [id number] Univers 11:00:00 11:00:00 ity of [facility] 2020-11-20 2020-11-20 Abstract [facility] 1.2.840.114 [id number] Univers 00:00:00 00:00:00 Peri Bravo DIGITAL ASSET COORDINATOR 350.1.13.10 ity of [facility] 4.2.7.2.686 Braulio as MATERNAL [phone] [facility] [address] [place] [address] 2020-11-20 2020-11-20 Telephone Froilan [facility] 1.2.840.114 [id number] Univers 00:00:00 00:00:00 Michael Rothman DIGITAL ASSET COORDINATOR 350.1.13.10 ity of [facility] 4.2.7.2.686 Braulio as MATERNAL [phone] [facility] ical & CHILD [address] [place] [address] 2020-11-01 2020-11-01 Telephone Cecilia [facility] 1.2.071.166 [id number] Univers 00:00:00 00:00:00 Peri Bravo DIGITAL ASSET COORDINATOR 350.1.13.10 ity of [facility] 4.2.7.2.686 Braulio as MATERNAL [phone] [facility] ical & CHILD [address] [place] [address] 2020-10-31 2020-10-31 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 114 [id number] Univers 07:41:41 07:53:36 Visit Peri Brooks DIGITAL ASSET COORDINATOR 350.1.13.10 ity of [facility] 4.2.7.2.686 Braulio as MATERNAL [phone] [facility] ical & CHILD [address] [place] [address] 2020-10-31 2020-10-[address] [facility] [id number] Univers 07:45:00 07:45:00 SHANIANDA ity o f [facility] 2020-10-30 2020-10-30 Telephone Brooks [facility] [id number] Univers 00:00:00 00:00:00 Peri R DIGITAL ASSET COORDINATOR 350.1.13.10 ity of REGIONAL 4.2.7.2.686 Braulio as MATERNAL [phone] [facility] ical & CHILD [address] [place] [address] 2020-10-29 2020-10-29 Initial [facility] 1.2.840.114 [id number] Univers 09:17:10 10:23:37 Hyacinthlisatawanna R DIGITAL ASSET COORDINATOR 350.1.13.10 ity of Visit [facility] 4.2.7.2.686 Braulio as MATERNAL [id number] [facility] & CHILD [address] [place] [address] 2020-10-29 2020-10-[address] [facility] [id number] Univers 08:30:00 08:30:00 ity of [facility] 2020-10-29 2020-10-29 Outpatient R AKINSIPE, [facility] [id number] Univers 07:45:00 07:45:00 MICHAEL ity o f [facility] 2020-10-23 2020-10-23 Orders Doctor ESTHER 1.2.840.114 [id number] Univers 00:00:00 00:00:00 Only Unassigned, RAZ 350.1.13.10 ity of [place] [facility] 4.2.7.2.686 Braulio as [phone] [address] 2020-02-06 2020-02-06 Telephone Pcp, [facility] 1.2.803.304 [id number] Univers 00:00:00 00:00:00 Patient DIGITAL ASSET COORDINATOR 350.1.13.10 it y of Does Not [facility] 4.2.7.2.686 [place] MATERNAL [phone] [facility] & CHILD [address] [place] [address] 2020-02-06 2020-02-06 Telephone Pcp, [facility] [id number] 00:00:00 00:00:00 Patient DIGITAL ASSET COORDINATOR 350.1.13.10 Does Not REGIONAL 4.2.7.2.686 Have A MATERNAL [id number] & CHILD [address] [place] [address] 2020-02-02 2020-02-02 Routine [facility] 1.2.840.114 [id number] Univers 15:35:59 16:20:40 Roshunda R DIGITAL ASSET COORDINATOR 350.1.13.10 ity of Visit REGIONAL 4.2.7.2.686 Braulio as MATERNAL [phone] Med ical & CHILD [address] [place] [address] 2020-02-02 2020-02-02 Outpatient R BROOKS, [facility] [id number] Univers 15:45:00 15:45:00 ROSHUNDA ity o [facility] 2020-01-23 2020-01-23 Telephone [facility] [id number] Univers 00:00:00 00:00:00 Roshunda R DIGITAL ASSET COORDINATOR 350.1.13.10 ity of REGIONAL 4.2.7.2.686 Braulio as MATERNAL [phone] [facility] [address] [place] [address] 2020-01-20 2020-01-20 [place] [facility] 1.2.723.056 [id number] Univers 00:00:00 00:00:00 Roshunda R DIGITAL ASSET COORDINATOR 350.1.13.10 ity of REGIONAL 4.2.7.2.686 Braulio as MATERNAL [phone] [facility] & [address] 2020-01-18 2020-01-18 [place] [facility] [id number] Univers 00:00:00 00:00:00 Roshunda R DIGITAL ASSET COORDINATOR 350.1.13.10 ity of REGIONAL 4.2.7.2.686 Braulio as MATERNAL [phone] [facility] [address] [place] [address] 2020-01-17 2020-01-[address] 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 114 [id number] Univers 09:30:17 09:45:17 Visit Peri Brooks R DIGITAL ASSET COORDINATOR 350.1.13.10 ity of REGIONAL 4.2.7.2.686 Braulio as MATERNAL [phone] [facility] ical & CHILD [address] [place] [address] 2020-01-11 2020-01-11 Telephone Cecilia [facility] [id number] Univers 00:00:00 00:00:00 Rosseferinonda R DIGITAL ASSET COORDINATOR 350.1.13.10 ity of REGIONAL 4.2.7.2.686 Braulio as MATERNAL [phone] [facility] ical & CHILD [address] [place] [address] 2020-01-11 2020-01-11 Telephone Cecilia [facility] [id number] Univers 00:00:00 00:00:00 Roshunda R DIGITAL ASSET COORDINATOR 350.1.13.10 ity of REGIONAL 4.2.7.2.686 Braulio as MATERNAL [phone] [facility] & CHILD [address] [place] [address] 2020-01-10 2020-01-10 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 114 [id number] Univers 07:45:43 08:00:43 Visit Peri Brooks R DIGITAL ASSET COORDINATOR 350.1.13.10 ity of REGIONAL 4.2.7.2.686 Braulio as MATERNAL [phone] [facility] & [address] 2020-01-10 2020-01-[address] [facility] [id number] Univers 07:45:00 07:45:00 ity of [facility] 2020-01-05 2020-01-05 Initial Cecilia [facility] 1.2.840.114 [id number] Univers 09:05:38 10:31:43 Roshunda R DIGITAL ASSET COORDINATOR 350.1.13.10 ity of Visit REGIONAL 4.2.7.2.686 Braulio as MATERNAL [phone] [facility] ical & CHILD [address] [place] [address] 2020-01-05 2020-01-[address] [facility] [id number] Univers 09:45:00 09:45:00 ROSHUNDA ity o f [facility] 2020-01-05 2020-01-05 Orders Doctor ESTHER 1.2.840.114 [id number] Univers 00:00:00 00:00:00 Only Unassigned, RAZ 350.1.13.10 ity of [place] [facility] 4.2.7.2.686 Braulio [phone] [place] [address] [address] 2019-12-28 2019-12-28 Emergency Barry, [facility] 1.2.840.114 [id number] Univers 15:04:00 17:11:00 Cee Otero 350.1.13.10 i ty of [place] 4.2.7.2.686 [facility] [phone] [place] [address] [place] Results This patient has no known results.
[2022-03-31 14:15] LABS: SARS-COV-2 RT PCR NEGATIVE (NEGATIVE)
--- NOTE | 2022-03-31 14:17 | ER ---
Nurse's Notes [facility] Name: Daria Mario Age: 22 yrs Sex: Female : 2000 Arrival Date: 03/31/2022 Time: 11: Bed IW8 Private MD: Diagnosis: Streptococcal pharyngitis Presentation: 03/31 13:20 Chief complaint: Patient states: sore throat, N/V and body aches that began last night. ss Coronavirus screen: Client denies travel out of the [place] in the last 14 days. Ebola Screen: Patient denies exposure to infectious person. Patient denies travel to an Ebola-affected area in the 21 days before illness onset. Initial Sepsis Screen: Does the patient meet any 2 criteria? No. Patient's initial sepsis screen is negative. Does the patient have a suspected source of infection? No. Patient's initial sepsis screen is negative. Risk Assessment: Do you want to hurt yourself or someone else? Patient reports no desire to harm self or others. Onset of symptoms was March 30, 2022. 13:20 Method Of Arrival: Ambulatory 13:20 Acuity: ISABELL 4 ss Historical: - Allergies: 13:21 No Known Allergies; ss - Home Meds: 13:21 None [Active]; ss - PMHx: 13:21 None; ss - PSHx: 13:21 Tonsillectomy; ss - Immunization history:: Client reports having NOT received the Covid vaccine. - Social history:: Smoking status: Reported history of juuling and/or vaping. Vital Signs: 13:20 BP 104 / 66; Pulse 111; Resp 18; Temp 98.8(O); Pulse Ox 100% on R/A; Weight 114.31 kg; ss Height 5 ft. 2 in. (157.48 cm); Pain 8/10; 13:20 Body Mass Index 46.09 (114.31 kg, 157.48 cm) ED Course: 11:22 Patient arrived in ED. rg4 11:23 Maria Esther Lizama FNP-C is PHCP. snw 11:23 Cam Bueno DO is Attending Physician. snw 13:21 Triage completed. ss 13:21 Arm band placed on right wrist. ss 13:25 Strep Sent. ss 13:25 COVID-19/FLU A+B/RSV Sent. ss 15:18 Marilin Hill, RN is Primary Nurse. iw Administered Medications: 15:10 Drug: Promethazine 25 mg Route: IM; Site: right deltoid; iw 15:18 Drug: Augmentin (Amoxicillin-Clavulanate) 875 mg Route: PO; iw 15:18 Drug: predniSONE 20 mg Route: PO; iw 15:18 Drug: Pepcid (famotidine) 20 mg Route: PO; iw Outcome: 14:17 Discharge ordered by . snprabha 15:18 Patient left the ED. iw Signatures: Maria Esther Lizama, QUAD STAYER-C QUAD STAYER-Csnw Marilin Hill, RN RN iw Kristyn Cain RN RN Krys Ventura rg4
--- NOTE | 2022-03-31 14:17 | EDPHYS ---
Physician Documentation [facility] Name: Daria Mario Age: 22 yrs Sex: Female : 2000 Arrival Date: 03/31/2022 Time: 11:22 Bed IW8 Private MD: ED Physician Cam Bueno HPI: 03/31 14:19 This 22 yrs old Female presents to ER via Ambulatory with complaints of snw Vomiting, Body Aches. Historical: - Allergies: 13:21 No Known Allergies; ss - Home Meds: 13:21 None [Active]; ss - PMHx: 13:21 None; ss - PSHx: 13:21 Tonsillectomy; ss - Immunization history:: Client reports having NOT received the Covid vaccine. - Social history:: Smoking status: Reported history of juuling and/or vaping. ROS: 14:19 Eyes: Negative for injury, pain, redness, and discharge. snw 14:19 Neck: Negative for injury, pain, and swelling, Cardiovascular: Negative for chest pain, palpitations, and edema, Respiratory: Negative for shortness of breath, cough, wheezing, and pleuritic chest pain. 14:19 Back: Negative for injury and pain, : Negative for injury, bleeding, discharge, and swelling, MS/Extremity: Negative for injury and deformity, Skin: Negative for injury, rash, and discoloration. 14:19 Constitutional: Positive for body aches, chills, fatigue, fever, malaise, poor PO intake. 14:19 ENT: Positive for sore throat. 14:19 Abdomen/GI: Positive for nausea and vomiting. 14:19 Neuro: Positive for weakness. Exam: 14:17 Head/Face: Normocephalic, atraumatic. Eyes: Pupils equal round and reactive to light, snw extra-ocular motions intact. Lids and lashes normal. Conjunctiva and sclera are non-icteric and not injected. Cornea within normal limits. Periorbital areas with no swelling, redness, or edema. Neck: Trachea midline, no thyromegaly or masses palpated, and no cervical lymphadenopathy. Supple, full range of motion without nuchal rigidity, or vertebral point tenderness. No Meningismus. Chest/axilla: Normal chest wall appearance and motion. Nontender with no deformity. No lesions are appreciated. 14:17 Respiratory: Lungs have equal breath sounds bilaterally, clear to auscultation and percussion. No rales, rhonchi or wheezes noted. No increased work of breathing, no retractions or nasal flaring. Abdomen/GI: Soft, non-tender, with normal bowel sounds. No distension or tympany. No guarding or rebound. No evidence of tenderness throughout. Back: No spinal tenderness. No costovertebral tenderness. Full range of motion. Skin: Warm, dry with normal turgor. Normal color with no rashes, no lesions, and no evidence of cellulitis. MS/ Extremity: Pulses equal, no cyanosis. Neurovascular intact. Full, normal range of motion. Neuro: Awake and alert, GCS 15, oriented to person, place, time, and situation. Cranial nerves II-XII grossly intact. Motor strength 5/5 in all extremities. Sensory grossly intact. Cerebellar exam normal. Normal gait. 14:17 Constitutional: The patient appears awake, obese, uncomfortable, unkempt. 14:17 ENT: Nose: is normal, Mouth: is normal, Posterior pharynx: erythema, that is moderate. 14:17 Cardiovascular: Rate: tachycardic, Rhythm: regular. Vital Signs: 13:20 BP 104 / 66; Pulse 111; Resp 18; Temp 98.8(O); Pulse Ox 100% on R/A; Weight 114.31 kg; ss Height 5 ft. 2 in. (157.48 cm); Pain 8/10; 13:20 Body Mass Index 46.09 (114.31 kg, 157.48 cm) MDM: 11:52 Patient medically screened. snw 14:18 Data reviewed: vital signs, nurses notes. Data interpreted: Pulse oximetry: on room air snw is 100 %. Interpretation: normal. Counseling: I had a detailed discussion with the patient and/or guardian regarding: the historical points, exam findings, and any diagnostic results supporting the discharge/admit diagnosis, lab results, the need for outpatient follow up, to return to the emergency department if symptoms worsen or persist or if there are any questions or concerns that arise at home. Special discussion: Based on the history and exam findings, there is no indication for further emergent testing or inpatient evaluation. I discussed with the patient/guardian the need to see the primary care provider for further evaluation of the symptoms. 03/31 11:26 Order name: COVID-19/FLU A+B/RSV; Complete Time: 14:16 snw 03/31 11:47 Order name: Strep; Complete Time: 14:02 snw Administered Medications: 15:10 Drug: Promethazine 25 mg Route: IM; Site: right deltoid; iw 15:18 Drug: Augmentin (Amoxicillin-Clavulanate) 875 mg Route: PO; iw 15:18 Drug: predniSONE 20 mg Route: PO; iw 15:18 Drug: Pepcid (famotidine) 20 mg Route: PO; iw Disposition: 19:14 Co-signature as Attending Physician, Cam Bueno DO I was immediately available on-site ms3 in the Emergency Department for consultation in the care of the patient.. Disposition Summary: 03/31/22 14:17 Discharge Ordered Location: Home snw Condition: Stable snw Diagnosis - Streptococcal pharyngitis snw Followup: snw - With: Emergency Department - When: As needed - Reason: Worsening of condition Followup: snw - With: Private Physician - When: 1 - 2 days - Reason: Recheck today's complaints, Continuance of care, Re-evaluation by your physician Discharge Instructions: - Discharge Summary Sheet snw - Strep Throat, Adult snw - Rehydration, Adult snw Forms: - Medication Reconciliation Form snw - Thank You Letter snw - Antibiotic Education snw - Prescription Opioid Use snw - Work release form snw Prescriptions: - Pepcid 20 mg Oral Tablet - take 1 tablet by ORAL route once daily; 20 tablet; Refills: 0, Product snw Selection Permitted - promethazine 25 mg Oral Tablet - take 1 tablet by ORAL route every 6 hours As needed; 20 tablet; Refills: 0, snw Product Selection Permitted - Zithromax 500 mg Oral Tablet - take 1 tablet by ORAL route once daily for 5 days; 5 tablet; Refills: 0, snw Product Selection Permitted Signatures: Dispatcher [employer] Maria Esther Moore FNP-C TELEPHONE SALES REPRESENTATIVE-Csnw Marilin Hill, RN SANKET iw Kristyn Cain RN RN ss Sims, Marcus, DO DO ms3
[2022-03-31] MEDS ORDERED: predniSONE 20 MG TAB ONE (15:02)
[2022-03-31] MEDS ORDERED: PROMETHAZINE INJ 25 MG/ML AMP ONE (15:02)
[2022-03-31] MEDS ORDERED: FAMOTIDINE 20 MG TAB ONE (15:02)
[2022-03-31] MEDS ORDERED: AMOX/K CLAV 875 MG TAB ONE (15:07)
[2022-03-31 15:30] VITALS: BP 104/66; TEMP 98.8; O2SAT 100
== END 2022-03-31 15:18 | disposition home or self-care (01) ==
LOC: ER 11:19
DX: J02.0 Streptococcal pharyngitis (principal); Z20.822 Contact with and (suspected) exposure to COVID-19
CPT/HCPCS: 87081; 0241U; 96372; 99283; J2550; J7512